=== PATIENT | male | born 1995 | race Asian ===

== ENCOUNTER 2017-08-07 07:11 | Inpatient (IN) | payer OTHER ==
--- NOTE | 2017-08-07 07:19 | PDOC ---
History of Present Illness - General Chief Complaint: Bone Injury Stated Complaint: FINGER INJURY Time Seen by Provider: 08/07/17 07:18 - History of Present Illness Initial Comments: 08/07/17 08:08 The patient is a 21 year old right hand dominant male who presents for evaluation of an injury to his right hand. The patient reports that he caught his hand in a front desk host 15 minutes prior to presentation to the ED and sustained injuries to his 2nd, 3rd, 4th and 5th digits. He reports pain to his right hand but denies any numbness, weakness or decreased ROM. He reports the worst pain to his 4th digit where his nail has avulsed off. He otherwise denies any other injuries. Past History - Past Medical History Allergies/Adverse Reactions: Allergies Allergy/AdvReac Type Severity Reaction Status Date / Time No Known Allergies Allergy Verified 08/07/17 07:23 Home Medications: Ambulatory Orders NK [No Known Home Medication] 08/07/17 Review of Systems - Review of Systems Comments:: 08/07/17 08:12 Constitutional: No fevers, chills, fatigue, malaise HEENT: No Rhinorrhea, nasal congestion, visual changes Cardiovascular: No chest pain, syncope, palpitations, lightheadedness Respiratory: No Cough, SOB, Hemoptysis, Gastrointestinal: No Abdominal pain, Nausea, Vomiting, Constipation, Diarrhea, Melena Genitourinary: No Dysuria, Frequency, Urgency, Hesitancy, Hematuria, Flank pain Musculoskeletal: Pain to the right 4th and 5h digits of the hand. No Myalgia, arthralgia Skin: No rashes, itching, bruising, pallor Neurologic: No Headache, Dizziness, Numbness, Weakness, or Tingling Psychiatric: No Hallucinations. No SI or HI *Physical Exam - Physical Exam Comments: 08/07/17 08:15 General Appearance: Nourished. No Apparent Distress HEENT: No Pharyngeal Erythema, Tonsillar Exudate, Tonsillar Erythema Neck: No Cervical Lymphadenopathy Respiratory/Chest: Lungs Clear, Normal Breath Sounds. No Crackles, Rales, Rhonchi, Wheezing Cardiovascular: Regular Rhythm, Regular Rate. No Murmur, Gallops, Rubs Gastrointestinal/Abdominal: Normal Bowel Sounds, Soft. No Guarding, Rebound, Tenderness Musculoskeletal: No CVA Tenderness Extremity: The right 4th digit has the nail avulsed off with a notable hematoma. Laceration to the distal right 5th digit. Small hematoma under the nail of the right 3rd digit. Sensation to light touch and temperature intact in the distal extremities bilaterally. Normal ROM. Normal Capillary Refill Integumentary: Normal Color, Dry, Warm Neurologic: Fully Oriented, Alert, Normal Mood/Affect, Normal Response, ED Treatment Course - LABORATORY CBC & Chemistry Diagram: 08/07/17 09:22 08/07/17 09:22 Medical Decision Making - Medical Decision Making 08/07/17 09:32 The patient is a 21 year old right hand dominant male who presents for evaluation of an injury to his right hand. Differential includes but is not limited to: Nail bed laceration, Fracture, Laceration. Given the patient's physical exam, we obtained plain films to evaluate for fractures within the hand. They demonstrated a comminuted crush fracture to the distal 4th right digit as read by our radiologist. We discussed the case with Dr. Wasserman with Plastic Surgery who will take the patient to the OR for repair and wash out and would like the patient admitted. We discussed the case with Dr. Monsalve who accepted the patient for admission and requests ID consultation with Dr. Bang for antibiotic coverage. We discussed the results and the plan with the patient who voiced understanding and is agreeable with the plan. *DC/Admit/Observation/Transfer Diagnosis at time of Disposition: Injury of right hand Qualifiers: Encounter type: initial encounter Qualified Code(s): S69.91XA - Unspecified injury of right wrist, hand and finger(s), initial encounter - Discharge Dispostion Condition at time of disposition: Stable Admit: Yes - Referrals - Patient Instructions - Post Discharge Activity
[2017-08-07] MEDS ORDERED: DIPHTH,PERTUSS(ACELL),TET 0.5 ML DISP.SYRIN IM ONE (07:24)
[2017-08-07 07:35] VITALS: BMI 32.8
[2017-08-07] MEDS ORDERED: morphine CARPU-JECT 2 MG/1 ML DISP.SYRIN IVPUSH ONE (07:46)
--- NOTE | 2017-08-07 07:56 | PDOC ---
Attending Attestation - HPI HPI: 08/07/17 08:59 The patient is a 21 year old R hand dominant male with no significant PMH who presents to the emergency department with a right hand injury after his hand was caught in a profiler. The patient reports injuries to the 2nd, 3rd, 4th, and 5th right fingers. The patient denies active bleeding. Does not remember last tetanus. Has not taken anything for pain. Allergies: NKA - Physicial Exam PE: 08/07/17 08:59 GENERAL: Awake, alert, and fully oriented, in no acute distress HEAD: No signs of trauma EYES: PERRLA, EOMI, sclera anicteric, conjunctiva clear ENT: Auricles normal inspection, hearing grossly normal, nares patent, oropharynx clear without exudates. Moist mucosa NECK: Normal ROM, supple, no lymphadenopathy, JVD, or masses LUNGS: Breath sounds equal, clear to auscultation bilaterally. No wheezes, and no crackles HEART: Regular rate and rhythm, normal S1 and S2, no murmurs, rubs or gallops ABDOMEN: Soft, nontender, normoactive bowel sounds. No guarding, no rebound. No masses EXTREMITIES: R hand: 2+ radial pulse, normal sensation, normal ROM, normal strength with flextion, extension, abduction, adduction of fingers. Right 2nd finger: proximal nail fold with 1mm x 3mm hematoma Right 3rd finger: 20% subungal hematoma, no ttp Right 4th finger: nail completely off with visible laceration to nailbed. Hemostatic, +ttp Right 5th finger: distal tip 2mm laceration, hemostatic Otherwise: normal range of motion, no edema. No clubbing or cyanosis. No cords , erythema, or tenderness BACK: No midline spinal tenderness in cervical/thoracic/lumbar region NEUROLOGICAL: Normal speech, cranial nerves intact, negative pronator drift, 5/ 5 strength in all 4 extremities, normal sensation to light touch in all 4 extremities, normal cerebellar exam, normal gait, normal reflexes and tone SKIN: Warm, Dry, normal turgor, no rashes or lesions noted. <Hossein Valentin - Last Filed: 08/07/17 08:59> - Resident Resident Name: Deric Prabhakar - ED Attending Attestation I have performed the following: I have examined & evaluated the patient, The case was reviewed & discussed with the resident, I agree w/resident's findings & plan, Exceptions are as noted - Medical Decision Making 08/07/17 09:02 21-year-old male presents to emergency department with right hand injury after it was stuck in a snowblower. Vitals unremarkable. Exam with concern for open fracture of the fourth digit. X-ray reveals crush injury to the right fourth finger. Dr. Wasserman was consulted and will take the patient to the operating room. We'll obtain blood work and give Ancef for prophylaxis. All results have been explained to the patient and he is amenable to the plan. <Lissy Alonso - Last Filed: 08/07/17 10:06> Heart Score/ECG Review #1 08/07/17 10:06 Twelve-lead EKG was performed and reviewed by me. Sinus bradycardia, rate 56. Normal axis. Sinus arrhythmia, likely due to respiratory variation. No ST elevations. <Lissy Alonso - Last Filed: 08/07/17 10:06>
[2017-08-07] MEDS ORDERED: MORPHINE SULFATE 10 MG/1 ML *VIAL ONE (08:01)
[2017-08-07] MEDS ORDERED: CEFAZOLIN 1 GM in DEXTROSE 5%-WATER - 50 ML IVPB ONE (09:16)
[2017-08-07] MEDS ORDERED: CEFAZOLIN 1 GM/D5W 1 GM/50 ML BAG ONE (09:31)
[2017-08-07 09:44] LABS: BASO % 0.4 % (0-2.0); EOS % 0.9 % (0-4.5); HEMATOCRIT 43.1 % (35.4-49); HEMOGLOBIN 14.3 GM/dL (11.7-16.9); LYMPH % 10.3 % (8-40); MCH 28.6 pg (25.7-33.7); MCHC 33.2 g/dl (32.0-35.9); MEAN CELL VOLUME 86.3 fl (80-96); MEAN PLT VOLUME 8.1 fl (7.5-11.1); MONO % 6.4 % (3.8-10.2); PLATELET COUNT 304 K/MM3 (134-434); RDW 13.5 % (11.9-15.9)
[2017-08-07 09:56] LABS: INR 1.06 (0.82-1.09)
[2017-08-07 10:08] LABS: ALBUMIN 4.2 g/dl (3.4-5.0); ALK PHOS 106 U/L (45-117); ANION GAP 6 (8-16); BILIRUBIN,TOTAL 0.3 mg/dL (0.2-1.0); BLOOD UREA NITROGEN 12 mg/dL (7-18); CHLORIDE 106 mmol/L (98-107); CO2 26 mmol/L (21-32); CREATININE 0.9 mg/dL (0.7-1.3); GLUCOSE,RANDOM 108 mg/dL (74-106); POTASSIUM 4.7 mmol/L (3.5-5.1); SGOT/AST 14 U/L (15-37); SGPT/ALT 16 U/L (12-78); SODIUM 138 mmol/L (136-145); TOT PROT 7.8 g/dl (6.4-8.2)
[2017-08-07] MEDS ORDERED: SODIUM CHLORIDE 1,000 ML IV STA (10:14)
--- NOTE | 2017-08-07 12:23 | EKG ---
Test Reason : Blood Pressure : / mmHG Vent. Rate : 056 BPM Atrial Rate : 056 BPM P-R Int : 140 ms QRS Dur : 092 ms QT Int : 390 ms P-R-T Axes : 031 036 024 degrees QTc Int : 376 ms SINUS BRADYCARDIA WITH SINUS ARRHYTHMIA OTHERWISE NORMAL ECG NO PREVIOUS ECGS AVAILABLE Confirmed by LUIS FELIPE BOYCE MD ([id number]) on 08/07/2017 12:22:45 PM Referred By: Confirmed By:LUIS FELIPE BOYCE MD
--- NOTE | 2017-08-07 12:23 | CONSULT ---
Consult Consult Specialty:: hand surgery Referred by:: farrukh machuca MD Reason for Consultation:: right hand injury - History of Present Illness Chief Complaint: right hand injury History of Present Illness: 21 yo RHD male with no significant PMH who presents to the emergency department with a right hand injury after his hand was caught in a framing mechanic this morning. The patient reports injuries to the 2nd, 3rd, 4th, and 5th right fingers. The patient denies active bleeding. Does not remember last tetanus. Has not taken anything for pain. we were asked to assess and treat - History Source History Provided By: Patient, Medical Record Limitations to Obtaining History: No Limitations - Alcohol/Substance Use Hx Alcohol Use: No - Smoking History Smoking history: Never smoked Have you smoked in the past 12 months: No Home Medications - Allergies Allergies/Adverse Reactions: Allergies Allergy/AdvReac Type Severity Reaction Status Date / Time No Known Allergies Allergy Verified 08/07/17 07:23 - Home Medications Home Medications: Ambulatory Orders NK [No Known Home Medication] 08/07/17 Review of Systems - Review of Systems Constitutional: denies: Chills, Fever Eyes: denies: Blind Spots, Recent Change in Vision HENT: denies: Difficult Swallowing, Throat Pain Neck: denies: Pain on Movement, Tenderness Cardiovascular: denies: Chest Pain, Palpitations Respiratory: denies: Cough, SOB Gastrointestinal: denies: Constipation, Diarrhea Genitourinary: denies: Discharge, Dysuria Breasts: reports: No Symptoms Reported. denies: Pain Musculoskeletal: denies: Muscle Pain, Muscle Weakness Integumentary: denies: Lesions, Rash Neurological: denies: Seizure, Syncope, Tremors Endocrine: denies: Unexplained Weight Gain, Unexplained Weight Loss Hematology/Lymphatic: denies: Easily Bruised, Excessive Bleeding Psychiatric: denies: Anxiety, Depression Physical Exam Vital Signs: Vital Signs Temperature 98.1 F 08/07/17 10:15 Pulse Rate 68 08/07/17 10:15 Respiratory Rate 18 08/07/17 10:15 Blood Pressure 133/75 08/07/17 10:15 O2 Sat by Pulse Oximetry (%) 98 08/07/17 10:15 Vital Signs Period Temp Pulse Resp BP Sys/Mohr Pulse Ox Last 24 Hr 97.0 F-98.3 F 55-84 14-20 122-137/58-85 98-100 Constitutional: Yes: No Distress, Calm, Obese Eyes: Yes: Conjunctiva Clear, EOM Intact HENT: Yes: Atraumatic, Normocephalic Neck: Yes: Supple, Trachea Midline Cardiovascular: Yes: Regular Rate and Rhythm, S1, S2. No: Murmur Respiratory: Yes: Regular, CTA Bilaterally Gastrointestinal: Yes: Normal Bowel Sounds, Soft. No: Tenderness ...Rectal Exam: Yes: Deferred Renal/: No: CVA Tenderness - Left, CVA Tenderness - Right Musculoskeletal: No: Muscle Pain, Muscle Weakness Extremities: No: Cool, Cyanosis Integumentary: No: Jaundice, Rash Wound/Incision: Yes: Open to air, Bleeding (venous oozing, no pulsatile bleeding ), Unapproximated (right finger nail plate avulsion, with 1.5cm laceation of nail bed and comminuted tuft fracture. right small finger ulnar sided laceration 1cm to pulp,) Neurological: Yes: Alert, Oriented Psychiatric: Yes: Alert, Oriented Labs: CBC, BMP 08/07/17 09:22 08/07/17 09:22 INR, PTT INR 1.06 (0.82-1.09) 08/07/17 09:22 Imaging - Results X-ray: Report Reviewed (right ring finger comminuted tuft fracture), Image Reviewed Problem List - Problems (1) Open fracture of tuft of distal phalanx of finger Assessment/Plan: 21yo RHD male with right hand framing mechanic injury A. Right ring finger open tuft fracture with nail plate avulsion and nail bed laceration B. Right small finger ulnar laceration of pulp C. Right middle finger small subungal hematoma D. Right index finger small eponychial hematoma NPO and IVF hydration IV antibiotics adequate analgesia OR for right hand 4th and 5th digit wound exploration, debridement and closure - Discussed with patient risks, benefits and alternatives of proposed procedure , including but not limited to bleeding, infection, injury to adjacent structures, loss of function, need for further procedures, ; alternatives include antibiotics, delayed or no surgery - risks of this include failure of nonoperative therapy, perforation, sepsis, recurrence, . Patient desires to proceed with operation - will take to OR for above. Informed consent signed for same. Code(s): S62.639B - DISP FX OF DISTAL PHALANX OF UNSP FINGER, INIT FOR OPN FX (2) Nailbed laceration, finger Code(s): S61.319A - LACERATION W/O FB OF UNSP FINGER W DAMAGE TO NAIL, INIT (3) Traumatic avulsion of nail plate of finger Code(s): S61.309A - UNSP OPEN WOUND OF UNSP FINGER W DAMAGE TO NAIL, INIT ENCNTR (4) Injury of right hand Code(s): S69.91XA - UNSP INJURY OF RIGHT WRIST, HAND AND FINGER(S), INIT ENCNTR Qualifiers: Encounter type: initial encounter Qualified Code(s): S69.91XA - Unspecified injury of right wrist, hand and finger(s), initial encounter
--- NOTE | 2017-08-07 12:48 | HP ---
Admitting History and Physical - Smoking History Smoking history: Never smoked Have you smoked in the past 12 months: No - Alcohol/Substance Use Hx Alcohol Use: No Home Medications - Allergies Allergies/Adverse Reactions: Allergies Allergy/AdvReac Type Severity Reaction Status Date / Time No Known Allergies Allergy Verified 08/07/17 07:23 - Home Medications Home Medications: Ambulatory Orders NK [No Known Home Medication] 08/07/17 Physical Examination Vital Signs: Vital Signs Temperature 98.3 F 08/07/17 12:10 Pulse Rate 67 08/07/17 12:10 Respiratory Rate 20 08/07/17 12:10 Blood Pressure 136/85 08/07/17 12:10 O2 Sat by Pulse Oximetry (%) 98 08/07/17 12:10 Labs: CBC, BMP 08/07/17 09:22 08/07/17 09:22
[2017-08-07] MEDS ORDERED: DEXTROSE 5%-0.45% SALINE 1,000 ML IV SCH (13:00)
--- NOTE | 2017-08-07 13:17 | CON.ID ---
Consult Consult Specialty:: infectious diseases Referred by:: dr Monsalve Reason for Consultation:: cellulitis of the rt hand with finger injury - History of Present Illness Chief Complaint: injury to the rt hand History of Present Illness: 21 yo RHD male with no significant PMH who presents admitted with a right hand injury after his hand was caught in a computer project manager . The patient reports injuries to the 2nd, 3rd, 4th, and 5th right fingers. The patient denies active bleeding. . patient was evaluated by hand surgeon and taken to the operating room patient underwent surgery now patient is post op in recovery room feeling much better with cast on his rt hand had a nerver block as anesthesia - History Source History Provided By: Patient Limitations to Obtaining History: No Limitations - Alcohol/Substance Use Hx Alcohol Use: No - Smoking History Smoking history: Never smoked Have you smoked in the past 12 months: No Home Medications - Allergies Allergies/Adverse Reactions: Allergies Allergy/AdvReac Type Severity Reaction Status Date / Time No Known Allergies Allergy Verified 08/07/17 07:23 - Home Medications Home Medications: Ambulatory Orders NK [No Known Home Medication] 08/07/17 Review of Systems - Review of Systems Constitutional: denies: Chills, Fever Eyes: reports: No Symptoms. denies: Blind Spots, Blurred Vision HENT: denies: Difficult Swallowing Neck: reports: No Symptoms Cardiovascular: reports: No Symptoms. denies: Chest Pain Respiratory: reports: No Symptoms Gastrointestinal: reports: No Symptoms Genitourinary: reports: No Symptoms Musculoskeletal: reports: Extremity Pain Integumentary: reports: Wound Neurological: reports: No Symptoms. denies: Change in LOC, Change in Speech Endocrine: reports: No Symptoms Hematology/Lymphatic: reports: No Symptoms Psychiatric: reports: No Symptoms Physical Exam Vital Signs: Vital Signs Temperature 98.3 F 08/07/17 12:10 Pulse Rate 67 08/07/17 12:10 Respiratory Rate 20 08/07/17 12:10 Blood Pressure 136/85 08/07/17 12:10 O2 Sat by Pulse Oximetry (%) 98 08/07/17 12:10 Constitutional: Yes: Well Nourished, No Distress, Calm Eyes: Yes: Conjunctiva Clear Neck: Yes: Supple, Trachea Midline Cardiovascular: Yes: Regular Rate and Rhythm Respiratory: Yes: Regular, CTA Bilaterally Gastrointestinal: Yes: Normal Bowel Sounds, Soft Musculoskeletal: Yes: Other Extremities: Yes: Other (cast present on the hand) Integumentary: Yes: Other Wound/Incision: Yes: Dressing Dry and Intact Neurological: Yes: Alert, Oriented Psychiatric: Yes: Alert, Oriented Labs: CBC, BMP 08/07/17 09:22 08/07/17 09:22 Imaging - Results X-ray: Report Reviewed, Image Reviewed Assessment/Plan Problem List - Problems (1) Open fracture of tuft of distal phalanx of finger Code(s): S62.639B - DISP FX OF DISTAL PHALANX OF UNSP FINGER, INIT FOR OPN FX (2) Nailbed laceration, finger Code(s): S61.319A - LACERATION W/O FB OF UNSP FINGER W DAMAGE TO NAIL, INIT (3) Traumatic avulsion of nail plate of finger Code(s): S61.309A - UNSP OPEN WOUND OF UNSP FINGER W DAMAGE TO NAIL, INIT ENCNTR (4) Injury of right hand Code(s): S69.91XA - UNSP INJURY OF RIGHT WRIST, HAND AND FINGER(S), INIT ENCNTR Qualifiers: Encounter type: initial encounter Qualified Code(s): S69.91XA - Unspecified injury of right wrist, hand and finger(s), initial encounter leukocytosis plan will start patient on zosyn post op monitor wbc rest as per surgery
[2017-08-07] MEDS ORDERED: MIDAZOLAM HCL 2 MG/2 ML SINGLE DOSE VIAL ONE ×2 (13:44)
[2017-08-07] MEDS ORDERED: ONDANSETRON 4 MG/2 ML VIAL IVPUSH PRN (14:05)
[2017-08-07] MEDS ORDERED: LACTATED RINGERS SOLUTION 1,000 ML IV SCH (14:15)
[2017-08-07] MEDS ORDERED: ceFAZolin SODIUM 1 GM VIAL ONE (14:18)
[2017-08-07] MEDS ORDERED: ceFAZolin SODIUM 1 GM VIAL IVPB ONE (14:20)
[2017-08-07] MEDS ORDERED: MEPERIDINE HCL CARPU-JECT 25 MG/1 ML DISP.SYRIN ONE (15:22)
--- NOTE | 2017-08-07 15:52 | OP ---
Operative Note - Note: Operative Date: 08/07/17 Pre-Operative Diagnosis: right hand admeasurer injury Operation: Right 4th and 5th Digit wound exploration and debridement. Ring finger nailbed laceration repair 1.5cm and eponychial fold splinting, TT=24mins Findings: comminuted tuft fracture right ring finger, nail-plate avulsion and 1.5cm nail- bed laceration, right small finger laceration 1cm Post-Operative Diagnosis: Same as Pre-op Surgeon: Marcello Wasserman Anesthesiologist/CHILD CARE GIVER: Obey Russell Anesthesia: General, Local (scalene block right ) Estimated Blood Loss (mls): 2 Instrument used (Debridements only): scissor Drains & Tubes with Location: none Fluid Volume Replaced (mls): 400 Operative Report Dictated: Yes
[2017-08-07] MEDS ORDERED: ACETAMINOPHEN 325 MG TABLET (FP) PO PRN ×3 (15:55→17:44)
[2017-08-07] MEDS ORDERED: morphine SULFATE 4 MG/ML VIAL IVPUSH PRN ×2 (15:55→16:45)
[2017-08-07] MEDS ORDERED: IBUPROFEN 600 MG TABLET (FP) PO PRN (15:55)
[2017-08-07] MEDS ORDERED: ONDANSETRON 4 MG/2 ML VIAL IVPB PRN (15:58)
[2017-08-07] MEDS: DEXTROSE 5%-0.45% SALINE 1,000 ML IV SCH (17:24)
[2017-08-07] MEDS: PIPERACILLIN/TAZOB 3.375 GM 3.375 GM in DEXTROSE 5%-WATER - 50 ML IVPB SCH (17:25)
[2017-08-07] MEDS ORDERED: PIPERACILLIN/TAZOB 3.375 GM 3.375 GM in DEXTROSE 5%-WATER - 50 ML IVPB SCH (18:00)
[2017-08-07] MEDS: PANTOPRAZOLE SODIUM 40 MG VIAL IVPUSH SCH (18:11)
[2017-08-08] MEDS: PIPERACILLIN/TAZOB 3.375 GM 3.375 GM in DEXTROSE 5%-WATER - 50 ML IVPB SCH ×3 (02:35→18:33)
[2017-08-08] MEDS: DEXTROSE 5%-0.45% SALINE 1,000 ML IV SCH (02:38)
[2017-08-08 07:30] LABS: BASO % 0.3 % (0-2.0); HEMATOCRIT 40.7 % (35.4-49); HEMOGLOBIN 13.7 GM/dL (11.7-16.9); LYMPH % 6.8 % (8-40); MCH 28.8 pg (25.7-33.7); MCHC 33.8 g/dl (32.0-35.9); MEAN CELL VOLUME 85.4 fl (80-96); MEAN PLT VOLUME 8.6 fl (7.5-11.1); NEUT % 88.9 % (42.8-82.8); PLATELET COUNT 300 K/MM3 (134-434); RBC 4.76 M/mm3 (4.00-5.60); RDW 13.2 % (11.9-15.9); WHITE BLOOD COUNT 16.4 K/mm3 (4.0-10.0)
[2017-08-08] MEDS: PANTOPRAZOLE SODIUM 40 MG VIAL IVPUSH SCH (10:08)
--- NOTE | 2017-08-08 11:20 | PN ---
Progress Note, Physician Chief Complaint: right hand pharmacists injury History of Present Illness: 21 yo RHD male with no significant PMH who presents to the emergency department with a right hand injury after his hand was caught in a pharmacists this morning. The patient reports injuries to the 2nd, 3rd, 4th, and 5th right fingers. stable overnight, pain adequately controlled. - Current Medication List Current Medications: Active Medications Acetaminophen (Tylenol -) 650 mg PO Q6H PRN PRN Reason: PAIN LEVEL 4 - 6 Dextrose/Sodium Chloride (D5-1/2ns -) 1,000 mls @ 75 mls/hr IV ASDIR [facility] Last Admin: 08/08/17 02:38 Dose: 75 mls/hr Piperacillin Sod/Tazobactam (Sod 3.375 gm/ Dextrose) 50 mls @ 100 mls/hr IVPB Q8H-IV YAMILKA PRN Reason: Protocol Last Admin: 08/08/17 10:17 Dose: 100 mls/hr Ibuprofen (Motrin -) 600 mg PO Q6H PRN PRN Reason: PAIN LEVEL 4 - 6 Morphine Sulfate (Morphine Sulfate) 2 mg IVPUSH Q6H PRN PRN Reason: PAIN LEVEL 6-10 Ondansetron HCl (Zofran Injection) 4 mg IVPB Q6H PRN PRN Reason: NAUSEA Pantoprazole Sodium (Protonix Iv) 40 mg IVPUSH DAILY [facility] Last Admin: 08/08/17 10:08 Dose: 40 mg - Objective Vital Signs: Vital Signs Temperature 98.1 F 08/08/17 09:14 Pulse Rate 86 08/08/17 09:14 Respiratory Rate 20 08/08/17 09:14 Blood Pressure 137/79 08/08/17 09:14 O2 Sat by Pulse Oximetry (%) 97 08/07/17 20:46 Vital Signs Period Temp Pulse Resp BP Sys/Mohr Pulse Ox Last 24 Hr 97.7 F-98.3 F 61-86 14-20 109-137/53-85 96-99 Constitutional: Yes: No Distress, Calm Eyes: Yes: Conjunctiva Clear, EOM Intact, Ptosis HENT: Yes: Atraumatic Neck: Yes: Supple, Trachea Midline Cardiovascular: Yes: Regular Rate and Rhythm Respiratory: Yes: Regular, CTA Bilaterally Extremities: No: Cool, Cyanosis Wound/Incision: Yes: Clean/Dry, Dressing Dry and Intact Neurological: Yes: Alert, Oriented Psychiatric: Yes: Alert, Oriented Labs: CBC, BMP 08/08/17 06:40 08/07/17 09:22 INR, PTT INR 1.06 (0.82-1.09) 08/07/17 09:22 Problem List - Problems (1) Open fracture of tuft of distal phalanx of finger Assessment/Plan: 21yo RHD male with right hand pharmacists injury A. Right ring finger open tuft fracture with nail plate avulsion and nail bed laceration B. Right small finger ulnar laceration of pulp C. Right middle finger small subungal hematoma D. Right index finger small eponychial hematoma POD#1 s/p repair, Repeat WBC 16.4, would reccomend remaining an additional day to receive IV antibiotics F/u in surgery clinic in 1 week for Dressing change Antibiotic regimen per ID Right Arm elevation encourage ambulation and Incentive spirometry Adequate analgesia Code(s): S62.639B - DISP FX OF DISTAL PHALANX OF UNSP FINGER, INIT FOR OPN FX (2) Nailbed laceration, finger Code(s): S61.319A - LACERATION W/O FB OF UNSP FINGER W DAMAGE TO NAIL, INIT (3) Traumatic avulsion of nail plate of finger Code(s): S61.309A - UNSP OPEN WOUND OF UNSP FINGER W DAMAGE TO NAIL, INIT ENCNTR (4) Injury of right hand Code(s): S69.91XA - UNSP INJURY OF RIGHT WRIST, HAND AND FINGER(S), INIT ENCNTR Qualifiers: Encounter type: initial encounter Qualified Code(s): S69.91XA - Unspecified injury of right wrist, hand and finger(s), initial encounter
--- NOTE | 2017-08-08 11:51 | PN ---
Progress Note (short form) - Note Progress Note: ANESTHESIOLOGY 21M s/p right hand washout under supraclavicular nerve block and sedation, POD # 1. No complaints. Denies pain, N/V. Reports decreased sensatoin and weakness of RUE. Vital Signs Temperature 98.1 F 08/08/17 09:14 Pulse Rate 86 08/08/17 09:14 Respiratory Rate 20 08/08/17 09:14 Blood Pressure 137/79 08/08/17 09:14 O2 Sat by Pulse Oximetry (%) 97 08/07/17 20:46 Active Medications Acetaminophen (Tylenol -) 650 mg PO Q6H PRN PRN Reason: PAIN LEVEL 4 - 6 Dextrose/Sodium Chloride (D5-1/2ns -) 1,000 mls @ 75 mls/hr IV ASDIR [facility] Last Admin: 08/08/17 02:38 Dose: 75 mls/hr Piperacillin Sod/Tazobactam (Sod 3.375 gm/ Dextrose) 50 mls @ 100 mls/hr IVPB Q8H-IV YAMILKA PRN Reason: Protocol Last Admin: 08/08/17 10:17 Dose: 100 mls/hr Ibuprofen (Motrin -) 600 mg PO Q6H PRN PRN Reason: PAIN LEVEL 4 - 6 Morphine Sulfate (Morphine Sulfate) 2 mg IVPUSH Q6H PRN PRN Reason: PAIN LEVEL 6-10 Ondansetron HCl (Zofran Injection) 4 mg IVPB Q6H PRN PRN Reason: NAUSEA Pantoprazole Sodium (Protonix Iv) 40 mg IVPUSH DAILY [facility] Last Admin: 08/08/17 10:08 Dose: 40 mg Gen: Awake alert. Ext: Decreased sensation and motor weakness of RUE up to shoulder. No apparent anesthesia complications. Sensorimotor deficit after nerve block persists. Expect nerve block to wear off this afternoon. Start PO analgesics when sensation starts to return. Continue management as per primary team.
--- NOTE | 2017-08-08 12:03 | PN ---
Progress Note, Physician History of Present Illness: patient has no complaints no issues wbc has increased no fevers - Current Medication List Current Medications: Active Medications Acetaminophen (Tylenol -) 650 mg PO Q6H PRN PRN Reason: PAIN LEVEL 4 - 6 Piperacillin Sod/Tazobactam (Sod 3.375 gm/ Dextrose) 50 mls @ 100 mls/hr IVPB Q8H-IV YAMILKA PRN Reason: Protocol Last Admin: 08/08/17 10:17 Dose: 100 mls/hr Vancomycin HCl 1,250 mg/ (Dextrose) 250 mls @ 166.667 mls/hr IVPB Q24H YAMILKA PRN Reason: Protocol Ibuprofen (Motrin -) 600 mg PO Q6H PRN PRN Reason: PAIN LEVEL 4 - 6 Morphine Sulfate (Morphine Sulfate) 2 mg IVPUSH Q6H PRN PRN Reason: PAIN LEVEL 6-10 Ondansetron HCl (Zofran Injection) 4 mg IVPB Q6H PRN PRN Reason: NAUSEA Pantoprazole Sodium (Protonix Iv) 40 mg IVPUSH DAILY [facility] Last Admin: 08/08/17 10:08 Dose: 40 mg - Objective Vital Signs: Vital Signs Temperature 98.1 F 08/08/17 09:14 Pulse Rate 86 08/08/17 09:14 Respiratory Rate 20 08/08/17 09:14 Blood Pressure 137/79 08/08/17 09:14 O2 Sat by Pulse Oximetry (%) 97 08/08/17 09:00 Constitutional: Yes: No Distress, Calm Cardiovascular: Yes: Regular Rate and Rhythm Respiratory: Yes: Regular, CTA Bilaterally Gastrointestinal: Yes: Normal Bowel Sounds, Soft Musculoskeletal: Yes: WNL Extremities: Yes: Other Wound/Incision: Yes: Dressing Dry and Intact Neurological: Yes: Alert, Oriented Psychiatric: Yes: Alert, Oriented Labs: CBC, BMP 08/08/17 06:40 08/07/17 09:22 INR, PTT INR 1.06 (0.82-1.09) 08/07/17 09:22 Assessment/Plan Problem List - Problems (1) Open fracture of tuft of distal phalanx of finger Code(s): S62.639B - DISP FX OF DISTAL PHALANX OF UNSP FINGER, INIT FOR OPN FX (2) Nailbed laceration, finger Code(s): S61.319A - LACERATION W/O FB OF UNSP FINGER W DAMAGE TO NAIL, INIT (3) Traumatic avulsion of nail plate of finger Code(s): S61.309A - UNSP OPEN WOUND OF UNSP FINGER W DAMAGE TO NAIL, INIT ENCNTR (4) Injury of right hand Code(s): S69.91XA - UNSP INJURY OF RIGHT WRIST, HAND AND FINGER(S), INIT ENCNTR Qualifiers: Encounter type: initial encounter Qualified Code(s): S69.91XA - Unspecified injury of right wrist, hand and finger(s), initial encounter leukocytosis patients wbc has increased quite a lot plan will add vanco to zosyn continue to monitor wbc i am worried about the increase in wbc i have discussed in detail with the patient and the family about the wbc and the importance of adding abx and following it patient and the family understands the same
[2017-08-08] MEDS ORDERED: VANCOMYCIN 1,250 MG in DEXTROSE 5%-WATER - 250 ML IVPB SCH (12:30)
[2017-08-08] MEDS: IBUPROFEN 600 MG TABLET (FP) PO PRN ×2 (13:54→20:44)
--- NOTE | 2017-08-08 18:13 | PN ---
Progress Note, Physician - Current Medication List Current Medications: Active Medications Acetaminophen (Tylenol -) 650 mg PO Q6H PRN PRN Reason: PAIN LEVEL 4 - 6 Piperacillin Sod/Tazobactam (Sod 3.375 gm/ Dextrose) 50 mls @ 100 mls/hr IVPB Q8H-IV YAMILKA PRN Reason: Protocol Last Admin: 08/08/17 10:17 Dose: 100 mls/hr Vancomycin HCl 1,250 mg/ (Dextrose) 250 mls @ 166.667 mls/hr IVPB Q24H Y[facility]ILKA PRN Reason: Protocol Last Admin: 08/08/17 12:46 Dose: 166.667 mls/hr Ibuprofen (Motrin -) 600 mg PO Q6H PRN PRN Reason: PAIN LEVEL 4 - 6 Last Admin: 08/08/17 13:54 Dose: 600 mg Morphine Sulfate (Morphine Sulfate) 2 mg IVPUSH Q6H PRN PRN Reason: PAIN LEVEL 6-10 Ondansetron HCl (Zofran Injection) 4 mg IVPB Q6H PRN PRN Reason: NAUSEA Pantoprazole Sodium (Protonix Iv) 40 mg IVPUSH DAILY [facility] Last Admin: 08/08/17 10:08 Dose: 40 mg - Objective Vital Signs: Vital Signs Temperature 98.6 F 08/08/17 14:43 Pulse Rate 89 08/08/17 14:43 Respiratory Rate 20 08/08/17 14:43 Blood Pressure 115/43 08/08/17 14:43 O2 Sat by Pulse Oximetry (%) 97 08/08/17 09:00 Constitutional: Yes: Well Nourished, No Distress Eyes: Yes: Conjunctiva Clear, EOM Intact HENT: Yes: Atraumatic, Normocephalic Neck: Yes: Supple, Trachea Midline Cardiovascular: Yes: Regular Rate and Rhythm, S1, S2 Respiratory: Yes: Regular, CTA Bilaterally Gastrointestinal: Yes: Normal Bowel Sounds, Soft Edema: No Peripheral Pulses WNL: Yes Neurological: Yes: Alert, Oriented, Cran Nerves II-XII Intact Labs: CBC, BMP 08/08/17 06:40 08/07/17 09:22 INR, PTT INR 1.06 (0.82-1.09) 08/07/17 09:22
[2017-08-08] MEDS ORDERED: PT OWN MED DRAWER 7, Y5N ONE (18:30)
[2017-08-09] MEDS ORDERED: PT OWN MED DRAWER 7, Y5N ONE (01:18)
[2017-08-09] MEDS: PIPERACILLIN/TAZOB 3.375 GM 3.375 GM in DEXTROSE 5%-WATER - 50 ML IVPB SCH ×2 (01:28→09:31)
--- NOTE | 2017-08-09 07:33 | PN ---
Progress Note, Physician Chief Complaint: right hand web operations administrator injury History of Present Illness: 21 yo RHD male with no significant PMH who presents to the emergency department with a right hand injury after his hand was caught in a web operations administrator this morning. The patient reports injuries to the 2nd, 3rd, 4th, and 5th right fingers. stable overnight, pain adequately controlled. - Current Medication List Current Medications: Active Medications Acetaminophen (Tylenol -) 650 mg PO Q6H PRN PRN Reason: PAIN LEVEL 4 - 6 Piperacillin Sod/Tazobactam (Sod 3.375 gm/ Dextrose) 50 mls @ 100 mls/hr IVPB Q8H-IV YAMILKA PRN Reason: Protocol Last Admin: 08/09/17 01:28 Dose: 100 mls/hr Vancomycin HCl 1,250 mg/ (Dextrose) 250 mls @ 166.667 mls/hr IVPB Q24H YAMILKA PRN Reason: Protocol Last Admin: 08/08/17 12:46 Dose: 166.667 mls/hr Ibuprofen (Motrin -) 600 mg PO Q6H PRN PRN Reason: PAIN LEVEL 4 - 6 Last Admin: 08/08/17 20:44 Dose: 600 mg Morphine Sulfate (Morphine Sulfate) 2 mg IVPUSH Q6H PRN PRN Reason: PAIN LEVEL 6-10 Ondansetron HCl (Zofran Injection) 4 mg IVPB Q6H PRN PRN Reason: NAUSEA Pantoprazole Sodium (Protonix Iv) 40 mg IVPUSH DAILY [facility] Last Admin: 08/08/17 10:08 Dose: 40 mg - Objective Vital Signs: Vital Signs Temperature 98.2 F 08/08/17 18:34 Pulse Rate 83 08/08/17 18:34 Respiratory Rate 18 08/08/17 18:34 Blood Pressure 106/71 08/08/17 18:34 O2 Sat by Pulse Oximetry (%) 98 08/08/17 22:00 Constitutional: Yes: Well Nourished, No Distress, Calm Eyes: Yes: Conjunctiva Clear, EOM Intact HENT: Yes: Atraumatic, Normocephalic Neck: Yes: Supple, Trachea Midline Cardiovascular: Yes: Regular Rate and Rhythm, S1, S2. No: Murmur Respiratory: Yes: Regular, CTA Bilaterally Gastrointestinal: Yes: Normal Bowel Sounds, Soft ...Rectal Exam: Yes: Deferred Genitourinary: No: CVA Tenderness - Left, CVA Tenderness - Right Extremities: No: Cool, Cyanosis Edema: No Wound/Incision: Yes: Clean/Dry, Dressing Dry and Intact Neurological: Yes: Alert, Oriented Psychiatric: Yes: Alert, Oriented Labs: CBC, BMP 08/09/17 06:30 08/07/17 09:22 Problem List - Problems (1) Open fracture of tuft of distal phalanx of finger Assessment/Plan: 21yo RHD male with right hand web operations administrator injury A. Right ring finger open tuft fracture with nail plate avulsion and nail bed laceration B. Right small finger ulnar laceration of pulp C. Right middle finger small subungal hematoma D. Right index finger small eponychial hematoma POD#2 s/p repair, Repeat WBC 12->16.4->11.1 , would recommend remaining an additional day to receive IV antibiotics F/u in surgery clinic in 1 week for Dressing change Antibiotic regimen per ID Right Arm elevation encourage ambulation and Incentive spirometry Adequate analgesia Discharge is at the discretion of Primary team and ID Code(s): S62.639B - DISP FX OF DISTAL PHALANX OF UNSP FINGER, INIT FOR OPN FX (2) Nailbed laceration, finger Code(s): S61.319A - LACERATION W/O FB OF UNSP FINGER W DAMAGE TO NAIL, INIT (3) Traumatic avulsion of nail plate of finger Code(s): S61.309A - UNSP OPEN WOUND OF UNSP FINGER W DAMAGE TO NAIL, INIT ENCNTR (4) Injury of right hand Code(s): S69.91XA - UNSP INJURY OF RIGHT WRIST, HAND AND FINGER(S), INIT ENCNTR Qualifiers: Encounter type: initial encounter Qualified Code(s): S69.91XA - Unspecified injury of right wrist, hand and finger(s), initial encounter
[2017-08-09 07:49] LABS: BASO % 0.5 % (0-2.0); EOS % 0.8 % (0-4.5); HEMATOCRIT 38.6 % (35.4-49); HEMOGLOBIN 12.9 GM/dL (11.7-16.9); LYMPH % 29.5 % (8-40); MCH 28.7 pg (25.7-33.7); MCHC 33.4 g/dl (32.0-35.9); MEAN CELL VOLUME 85.9 fl (80-96); MEAN PLT VOLUME 8.4 fl (7.5-11.1); MONO % 7.8 % (3.8-10.2); NEUT % 61.4 % (42.8-82.8); PLATELET COUNT 282 K/MM3 (134-434); RDW 13.6 % (11.9-15.9); WHITE BLOOD COUNT 11.1 K/mm3 (4.0-10.0)
[2017-08-09] MEDS: IBUPROFEN 600 MG TABLET (FP) PO PRN ×3 (07:59→19:53)
[2017-08-09] MEDS: PANTOPRAZOLE SODIUM 40 MG VIAL IVPUSH SCH (09:31)
--- NOTE | 2017-08-09 11:37 | PN ---
Progress Note, Physician History of Present Illness: patient has no complaints no issues wbc is trending down - Current Medication List Current Medications: Active Medications Acetaminophen (Tylenol -) 650 mg PO Q6H PRN PRN Reason: PAIN LEVEL 4 - 6 Clindamycin HCl (Cleocin -) 300 mg PO Q6HPO [facility] Ibuprofen (Motrin -) 600 mg PO Q6H PRN PRN Reason: PAIN LEVEL 4 - 6 Last Admin: 08/09/17 07:59 Dose: 600 mg Morphine Sulfate (Morphine Sulfate) 2 mg IVPUSH Q6H PRN PRN Reason: PAIN LEVEL 6-10 Ondansetron HCl (Zofran Injection) 4 mg IVPB Q6H PRN PRN Reason: NAUSEA Pantoprazole Sodium (Protonix Iv) 40 mg IVPUSH DAILY [facility] Last Admin: 08/09/17 09:31 Dose: 40 mg - Objective Vital Signs: Vital Signs Temperature 98.4 F 08/09/17 09:43 Pulse Rate 67 08/09/17 09:43 Respiratory Rate 18 08/09/17 09:43 Blood Pressure 110/52 08/09/17 09:43 O2 Sat by Pulse Oximetry (%) 98 08/09/17 09:00 Constitutional: Yes: No Distress, Calm Cardiovascular: Yes: Regular Rate and Rhythm Respiratory: Yes: Regular, CTA Bilaterally Gastrointestinal: Yes: Normal Bowel Sounds, Soft Musculoskeletal: Yes: WNL Extremities: Yes: Other Wound/Incision: Yes: Dressing Dry and Intact Neurological: Yes: Alert, Oriented Psychiatric: Yes: Alert, Oriented Labs: CBC, BMP 08/09/17 06:30 08/07/17 09:22 INR, PTT INR 1.06 (0.82-1.09) 08/07/17 09:22 Assessment/Plan Problem List - Problems (1) Open fracture of tuft of distal phalanx of finger Code(s): S62.639B - DISP FX OF DISTAL PHALANX OF UNSP FINGER, INIT FOR OPN FX (2) Nailbed laceration, finger Code(s): S61.319A - LACERATION W/O FB OF UNSP FINGER W DAMAGE TO NAIL, INIT (3) Traumatic avulsion of nail plate of finger Code(s): S61.309A - UNSP OPEN WOUND OF UNSP FINGER W DAMAGE TO NAIL, INIT ENCNTR (4) Injury of right hand Code(s): S69.91XA - UNSP INJURY OF RIGHT WRIST, HAND AND FINGER(S), INIT ENCNTR Qualifiers: Encounter type: initial encounter Qualified Code(s): S69.91XA - Unspecified injury of right wrist, hand and finger(s), initial encounter leukocytosis patients wbc has decreased plan will change to oral clinda monitor wbc if wbc continues to be normal then patient may be able to go home tomorrow
--- NOTE | 2017-08-09 12:27 | OP ---
DATE OF OPERATION: 08/07/2017 PREOPERATIVE DIAGNOSIS: Right hand arc cutter injury. POSTOPERATIVE DIAGNOSIS: Right hand arc cutter injury. PROCEDURE: Right 4th and 5th digit wound exploration with debridement; right ring finger nailbed laceration repair, 1.5 cm; and eponychial fold splinting. ATTENDING SURGEON: Marcello Wasserman MD MORTGAGE BROKER: None. ANESTHESIOLOGIST: ANESTHESIA TYPE: MAC with local. Local consisted of a scalene block applied by Dr. Kelsey. ESTIMATED BLOOD LOSS: 2 mL TOURNIQUET TIME: 24 minutes TOURNIQUET PRESSURE: 250 mmHg INSTRUMENTS FOR DEBRIDEMENT: Tenotomy scissors and Littler scissors. INTRAVENOUS FLUID: 400 mL crystalloid. BRIEF FINDINGS: Comminuted tuft fracture, right ring finger distal phalanx; nail plate avulsion 100% with associated 1.5-cm nailbed laceration for the right ring finger. The right small finger had a 1-cm laceration involving the pulp and cuticle. INDICATION: Patient is a 21-year-old male presenting approximately 2 hours after a arc cutter injury where his right hand was injured while he stuck it into a arc cutter, trying to dislodge ice from the shoot. His hand accidentally encountered the blade. He sustained an injury most significantly of the ring finger where he had a 100% nail plate avulsion. He immediately presented to the emergency room and was counseled regarding the need for surgery. He was started on IV antibiotics, provided with analgesia. At which point, we proceeded then with operative management. He was explained the risks, benefits, and alternatives to surgical procedure proposed, signed informed consent, was taken for the procedure. DESCRIPTION OF PROCEDURE: Patient was brought to the operating room. He was placed in supine position on the operating table with the right arm extended at 90 degrees perpendicular to the body's axis. The right hand was prepped and draped into a standard surgical field with a tourniquet applied. Lower extremities had SCDs applied. Patient was induced with sedation, already had a scalene block in place, placed by Dr. Kelsey preoperatively, which was dense with adequate anesthesia. Once sedated, a formal timeout was completed, identifying the operative site and the operative digits, the 4th and 5th, as well as the sites were marked. We proceeded then first with sterile shave, prep, and drape of the arm into a surgical field, blocking the dorsum of the 4th and 5th digits. We proceeded first with identifying what appeared to be a 100% nail plate avulsion from the ring finger. The nail itself was debrided and removed from its soft tissue connections which were remnant and saved for later re-splinting. It was debrided of some cuticle and detritus and trimmed to allow for installation as a biologic nail plate splint/eponychial fold splint. At any rate, we proceeded with first then with identification of a jagged and irregular 1.5-cm nailbed laceration. We identified it. Detritus was debrided from its border. The cuticle, which was frayed and devitalized, was debrided along with additional segments of nailbed. Debris, which was foreign, was irrigated from the site, which appeared to be dirt. It was not substantial. We then turned our attention to what appeared to be a subungual hematoma of the small finger. It was released with a [place] elevator under the nail. A 1-cm laceration was also identified on the ulnar border involving the pulp, extending into the cuticle. It was not deep to the bone. Once the injuries could be appraised, we then turned our attention to repair. The small finger laceration was irrigated. Debris was removed, a small amount of dirt. At which point, the decision was made to close it. Interrupted nylon provided for a loose closure. Size 4-0 was selected and approximated the skin edges. We then proceeded with expressing the subungual hematoma from the small finger. With the small finger repaired, we proceeded then with a nailbed laceration repair; 5-0 Vicryl in interrupted fashion was used to approximate the jagged edges of the remaining vital tissue of the nailbed. The tuft fracture was palpated. The bone fragments were compressed into a reasonable position. Once the nailbed itself could be adequately approximated, the eponychial fold was identified, and the sterile nail matrix appeared to be somewhat contaminated but was cleared of debris. We proceeded then with splinting the eponychial fold. The nail plate which had been preserved for this purpose was then trimmed to size and inserted under the eponychial fold into the area of the sterile nail matrix and then tacked in 3 positions. At the 12 o'clock position, the nail plate was tacked with 4-0 nylon in interrupted fashion. The 9 and 3 were also in interrupted fashion tacked to allow for adequate positioning of the nail. We then proceeded with cleaning the site. At each site, bacitracin was applied to the laceration repairs and the nail splint. It was wrapped in Xeroform gauze to protect the repairs. We then proceeded with placement of dressings including rolled gauze wrap around each of the digits distally. Passive motion confirmed that adequate position could be achieved in all joints, assuring no dislocation. Web space protection of gauze was then placed, and the patient was then splinted with a volar resting splint with protection for the tip of the ring and small fingers which had the significant injuries. The patient's wrist was placed into position of function. The arm was placed into a sling, and the patient was awoken from sedation, having tolerated the procedure well. The patient was returned to recovery room in stable condition. Counts were correct. MD KHANG Gooden/[id number]
[2017-08-09] MEDS: CLINDAMYCIN HCL 150 MG CAPSULE (FP) PO SCH ×2 (13:27→17:39)
[2017-08-10] MEDS ORDERED: PT OWN MED DRAWER 7, Y5N ONE (06:02)
[2017-08-10] MEDS: CLINDAMYCIN HCL 150 MG CAPSULE (FP) PO SCH ×3 (06:02→11:52)
[2017-08-10 07:41] LABS: HEMATOCRIT 38.5 % (35.4-49); HEMOGLOBIN 12.8 GM/dL (11.7-16.9); MCH 28.8 pg (25.7-33.7); MCHC 33.3 g/dl (32.0-35.9); MEAN CELL VOLUME 86.5 fl (80-96); MEAN PLT VOLUME 8.5 fl (7.5-11.1); PLATELET COUNT 284 K/MM3 (134-434); RBC 4.45 M/mm3 (4.00-5.60); RDW 13.6 % (11.9-15.9); WHITE BLOOD COUNT 10.2 K/mm3 (4.0-10.0)
[2017-08-10] MEDS: PANTOPRAZOLE SODIUM 40 MG VIAL IVPUSH SCH ×2 (10:19→10:40)
--- NOTE | 2017-08-10 11:27 | PN ---
Progress Note, Physician Chief Complaint: right hand display director injury History of Present Illness: 21 yo RHD male with no significant PMH who presents to the emergency department with a right hand injury after his hand was caught in a display director this morning. The patient reports injuries to the 2nd, 3rd, 4th, and 5th right fingers. stable overnight, pain adequately controlled. - Current Medication List Current Medications: Active Medications Acetaminophen (Tylenol -) 650 mg PO Q6H PRN PRN Reason: PAIN LEVEL 4 - 6 Clindamycin HCl (Cleocin -) 300 mg PO Q6HPO [facility] Last Admin: 08/10/17 06:02 Dose: 300 mg Ibuprofen (Motrin -) 600 mg PO Q6H PRN PRN Reason: PAIN LEVEL 4 - 6 Last Admin: 08/09/17 19:53 Dose: 600 mg Morphine Sulfate (Morphine Sulfate) 2 mg IVPUSH Q6H PRN PRN Reason: PAIN LEVEL 6-10 Ondansetron HCl (Zofran Injection) 4 mg IVPB Q6H PRN PRN Reason: NAUSEA Pantoprazole Sodium (Protonix Iv) 40 mg IVPUSH DAILY [facility] Last Admin: 08/10/17 10:40 Dose: Not Given - Objective Vital Signs: Vital Signs Temperature 98.2 F 08/10/17 09:24 Pulse Rate 64 08/10/17 09:24 Respiratory Rate 16 08/10/17 09:24 Blood Pressure 116/49 08/10/17 09:24 O2 Sat by Pulse Oximetry (%) 99 08/09/17 22:00 Vital Signs Period Temp Pulse Resp BP Sys/Mohr Pulse Ox Last 24 Hr 97.4 F-98.2 F 53-64 16-20 102-130/49-72 99 Constitutional: Yes: Well Nourished, No Distress Eyes: Yes: Conjunctiva Clear, EOM Intact HENT: Yes: Atraumatic, Normocephalic Neck: Yes: Supple, Trachea Midline Cardiovascular: Yes: Regular Rate and Rhythm, S1, S2 Respiratory: Yes: Regular, CTA Bilaterally Gastrointestinal: Yes: Normal Bowel Sounds, Soft. No: Tenderness ...Rectal Exam: Yes: Deferred Genitourinary: No: CVA Tenderness - Left, CVA Tenderness - Right Extremities: No: Cool, Cyanosis Wound/Incision: Yes: Clean/Dry, Well Approximated, Dressing Dry and Intact Neurological: Yes: Alert, Oriented Psychiatric: Yes: Alert, Oriented Labs: CBC, BMP 08/10/17 06:00 08/07/17 09:22 INR, PTT INR 1.06 (0.82-1.09) 08/07/17 09:22 Problem List - Problems (1) Open fracture of tuft of distal phalanx of finger Assessment/Plan: 21yo RHD male with right hand display director injury A. Right ring finger open tuft fracture with nail plate avulsion and nail bed laceration B. Right small finger ulnar laceration of pulp C. Right middle finger small subungal hematoma D. Right index finger small eponychial hematoma POD#3 s/p repair, Repeat WBC 12->16.4->11.1->10.2 F/u in surgery clinic in 1 week for Dressing change Antibiotic regimen per ID Right Arm elevation encourage ambulation and Incentive spirometry Adequate analgesia Discharge is at the discretion of Primary team and ID Code(s): S62.639B - DISP FX OF DISTAL PHALANX OF UNSP FINGER, INIT FOR OPN FX (2) Nailbed laceration, finger Code(s): S61.319A - LACERATION W/O FB OF UNSP FINGER W DAMAGE TO NAIL, INIT (3) Traumatic avulsion of nail plate of finger Code(s): S61.309A - UNSP OPEN WOUND OF UNSP FINGER W DAMAGE TO NAIL, INIT ENCNTR (4) Injury of right hand Code(s): S69.91XA - UNSP INJURY OF RIGHT WRIST, HAND AND FINGER(S), INIT ENCNTR Qualifiers: Encounter type: initial encounter Qualified Code(s): S69.91XA - Unspecified injury of right wrist, hand and finger(s), initial encounter
[2017-08-10] MEDS: PANTOPRAZOLE SOD 40 MG SUSPENSION PACKET PO SCH (11:52)
[2017-08-10] MEDS: IBUPROFEN 600 MG TABLET (FP) PO PRN ×2 (12:34→21:03)
--- NOTE | 2017-08-10 15:35 | PN ---
Progress Note, Physician Chief Complaint: Rt hand snoe blower injury History of Present Illness: 21 yo RHD male with no significant PMH who presents to the emergency department with a right hand injury after his hand was caught in a blower installer this morning. The patient reports injuries to the 2nd, 3rd, 4th, and 5th right fingers. stable overnight, pain adequately controlled - Current Medication List Current Medications: Active Medications Acetaminophen (Tylenol -) 650 mg PO Q6H PRN PRN Reason: PAIN LEVEL 4 - 6 Clindamycin HCl (Cleocin -) 300 mg PO Q6HPO [facility] Last Admin: 08/10/17 11:52 Dose: 300 mg Ibuprofen (Motrin -) 600 mg PO Q6H PRN PRN Reason: PAIN LEVEL 4 - 6 Last Admin: 08/10/17 12:34 Dose: 600 mg Morphine Sulfate (Morphine Sulfate) 2 mg IVPUSH Q6H PRN PRN Reason: PAIN LEVEL 6-10 Ondansetron HCl (Zofran Injection) 4 mg IVPB Q6H PRN PRN Reason: NAUSEA Pantoprazole Sodium (Protonix Packets For Oral Suspension -) 40 mg PO DAILY [facility] Last Admin: 08/10/17 11:52 Dose: 40 mg - Objective Vital Signs: Vital Signs Temperature 98.4 F 08/10/17 14:00 Pulse Rate 64 08/10/17 09:24 Respiratory Rate 16 08/10/17 09:24 Blood Pressure 116/49 08/10/17 09:24 O2 Sat by Pulse Oximetry (%) 99 08/10/17 09:00 Constitutional: Yes: Well Nourished, No Distress Eyes: Yes: Conjunctiva Clear, EOM Intact HENT: Yes: Atraumatic, Normocephalic Neck: Yes: Supple, Trachea Midline Cardiovascular: Yes: Regular Rate and Rhythm Respiratory: Yes: Regular, CTA Bilaterally Gastrointestinal: Yes: Normal Bowel Sounds, Soft Extremities: Yes: Other (blower room attendant injury to the 2nd, 3rd, 4th, and 5th right fingers. S/P Surgery) Labs: CBC, BMP 08/10/17 06:00 08/07/17 09:22 INR, PTT INR 1.06 (0.82-1.09) 08/07/17 09:22 Problem List - Problems (1) Open fracture of tuft of distal phalanx of finger Code(s): S62.639B - DISP FX OF DISTAL PHALANX OF UNSP FINGER, INIT FOR OPN FX (2) Nailbed laceration, finger Code(s): S61.319A - LACERATION W/O FB OF UNSP FINGER W DAMAGE TO NAIL, INIT (3) Traumatic avulsion of nail plate of finger Code(s): S61.309A - UNSP OPEN WOUND OF UNSP FINGER W DAMAGE TO NAIL, INIT ENCNTR (4) Injury of right hand Code(s): S69.91XA - UNSP INJURY OF RIGHT WRIST, HAND AND FINGER(S), INIT ENCNTR Qualifiers: Encounter type: initial encounter Qualified Code(s): S69.91XA - Unspecified injury of right wrist, hand and finger(s), initial encounter Assessment/Plan (1) Open fracture of tuft of distal phalanx of finger Assessment/Plan: 21yo RHD male with right hand blower installer injury A. Right ring finger open tuft fracture with nail plate avulsion and nail bed laceration B. Right small finger ulnar laceration of pulp C. Right middle finger small subungal hematoma D. Right index finger small eponychial hematoma POD#3 s/p repair, Repeat WBC 12->16.4->11.1->10.2 (2) Nailbed laceration, finger Code(s): S61.319A - LACERATION W/O FB OF UNSP FINGER W DAMAGE TO NAIL, INIT (3) Traumatic avulsion of nail plate of finger Code(s): S61.309A - UNSP OPEN WOUND OF UNSP FINGER W DAMAGE TO NAIL, INIT ENCNTR (4) Injury of right hand Code(s): S69.91XA - UNSP INJURY OF RIGHT WRIST, HAND AND FINGER(S), INIT ENCNTR
--- NOTE | 2017-08-10 15:50 | PN ---
Progress Note, Physician History of Present Illness: patient stable no complaints had 2 loose bowel moment wbc still not decreased much - Current Medication List Current Medications: Active Medications Acetaminophen (Tylenol -) 650 mg PO Q6H PRN PRN Reason: PAIN LEVEL 4 - 6 Clindamycin HCl (Cleocin -) 300 mg PO Q6HPO [facility] Last Admin: 08/10/17 11:52 Dose: 300 mg Ibuprofen (Motrin -) 600 mg PO Q6H PRN PRN Reason: PAIN LEVEL 4 - 6 Last Admin: 08/10/17 12:34 Dose: 600 mg Morphine Sulfate (Morphine Sulfate) 2 mg IVPUSH Q6H PRN PRN Reason: PAIN LEVEL 6-10 Ondansetron HCl (Zofran Injection) 4 mg IVPB Q6H PRN PRN Reason: NAUSEA Pantoprazole Sodium (Protonix Packets For Oral Suspension -) 40 mg PO DAILY [facility] Last Admin: 08/10/17 11:52 Dose: 40 mg - Objective Vital Signs: Vital Signs Temperature 98.4 F 08/10/17 14:00 Pulse Rate 64 08/10/17 09:24 Respiratory Rate 16 08/10/17 09:24 Blood Pressure 116/49 08/10/17 09:24 O2 Sat by Pulse Oximetry (%) 99 08/10/17 09:00 Constitutional: Yes: No Distress, Calm Cardiovascular: Yes: Regular Rate and Rhythm Respiratory: Yes: Regular, CTA Bilaterally Gastrointestinal: Yes: Normal Bowel Sounds, Soft Musculoskeletal: Yes: WNL Extremities: Yes: Other Wound/Incision: Yes: Dressing Dry and Intact Neurological: Yes: Alert, Oriented Psychiatric: Yes: Alert, Oriented Labs: CBC, BMP 08/10/17 06:00 08/07/17 09:22 INR, PTT INR 1.06 (0.82-1.09) 08/07/17 09:22 Assessment/Plan Problem List - Problems (1) Open fracture of tuft of distal phalanx of finger Code(s): S62.639B - DISP FX OF DISTAL PHALANX OF UNSP FINGER, INIT FOR OPN FX (2) Nailbed laceration, finger Code(s): S61.319A - LACERATION W/O FB OF UNSP FINGER W DAMAGE TO NAIL, INIT (3) Traumatic avulsion of nail plate of finger Code(s): S61.309A - UNSP OPEN WOUND OF UNSP FINGER W DAMAGE TO NAIL, INIT ENCNTR (4) Injury of right hand Code(s): S69.91XA - UNSP INJURY OF RIGHT WRIST, HAND AND FINGER(S), INIT ENCNTR Qualifiers: Encounter type: initial encounter Qualified Code(s): S69.91XA - Unspecified injury of right wrist, hand and finger(s), initial encounter leukocytosis patients wbc has marginally decreased 2 soft bowel movement i am worried why the patients wbc is not coming down will change abx and see what happens plan will change abx to doxy and augmentin will watch the wbc i have discussed in detail with the patient what is going on if the wbc does not come down then will d/w surgery to ahve a look at the wound
[2017-08-10] MEDS: DOXYCYCLINE HYCLATE 100 MG CAPSULE PO SCH (17:16)
[2017-08-10] MEDS: AMOX TR/POT CLAV 875MG/125MG TABLETS (FP) PO SCH (17:16)
[2017-08-11] MEDS: AMOX TR/POT CLAV 875MG/125MG TABLETS (FP) PO SCH ×2 (08:05→17:57)
[2017-08-11] MEDS: DOXYCYCLINE HYCLATE 100 MG CAPSULE PO SCH ×2 (09:40→17:57)
[2017-08-11] MEDS: PANTOPRAZOLE SOD 40 MG SUSPENSION PACKET PO SCH (09:40)
[2017-08-11 09:59] LABS: HEMATOCRIT 39.7 % (35.4-49); HEMOGLOBIN 13.3 GM/dL (11.7-16.9); MCH 28.8 pg (25.7-33.7); MCHC 33.5 g/dl (32.0-35.9); MEAN CELL VOLUME 85.9 fl (80-96); PLATELET COUNT 303 K/MM3 (134-434); RBC 4.63 M/mm3 (4.00-5.60); RDW 13.1 % (11.9-15.9); WHITE BLOOD COUNT 10.1 K/mm3 (4.0-10.0)
--- NOTE | 2017-08-11 10:11 | PN ---
Progress Note, Physician Chief Complaint: right hand laboratory apparatus glass blower injury History of Present Illness: 21 yo RHD male with no significant PMH who presents to the emergency department with a right hand injury after his hand was caught in a laboratory apparatus glass blower this morning. The patient reports injuries to the 2nd, 3rd, 4th, and 5th right fingers. stable overnight, pain adequately controlled. - Current Medication List Current Medications: Active Medications Acetaminophen (Tylenol -) 650 mg PO Q6H PRN PRN Reason: PAIN LEVEL 4 - 6 Amoxicillin/Clavulanate Potassium (Augmentin - 875mg Tablet) 1 tab PO BID@0800, 1730 [facility] Last Admin: 08/11/17 08:05 Dose: 1 tab Doxycycline Hyclate (Vibramycin -) 100 mg PO BID@1000,1800 [facility] Last Admin: 08/11/17 09:40 Dose: 100 mg Ibuprofen (Motrin -) 600 mg PO Q6H PRN PRN Reason: PAIN LEVEL 4 - 6 Last Admin: 08/10/17 21:03 Dose: 600 mg Ondansetron HCl (Zofran Injection) 4 mg IVPB Q6H PRN PRN Reason: NAUSEA Pantoprazole Sodium (Protonix Packets For Oral Suspension -) 40 mg PO DAILY [facility] Last Admin: 08/11/17 09:40 Dose: 40 mg - Objective Vital Signs: Vital Signs Temperature 98 F 08/11/17 09:32 Pulse Rate 68 08/11/17 09:32 Respiratory Rate 18 08/11/17 09:32 Blood Pressure 130/71 08/11/17 09:32 O2 Sat by Pulse Oximetry (%) 96 08/11/17 09:00 Vital Signs Period Temp Pulse Resp BP Sys/Mohr Pulse Ox Last 24 Hr 98 F-98.4 F 60-68 -18 100-130/60-71 96-99 Constitutional: Yes: No Distress, Calm, Obese Eyes: Yes: Conjunctiva Clear, EOM Intact HENT: Yes: Atraumatic, Normocephalic Neck: Yes: Supple, Trachea Midline Cardiovascular: Yes: Regular Rate and Rhythm, S1, S2 Respiratory: Yes: Regular, CTA Bilaterally Gastrointestinal: Yes: Normal Bowel Sounds, Soft, Abdomen, Obese. No: Tenderness ...Rectal Exam: Yes: Deferred Genitourinary: No: CVA Tenderness - Left, CVA Tenderness - Right Wound/Incision: Yes: Clean/Dry, Dressing Dry and Intact Neurological: Yes: Alert, Oriented Psychiatric: Yes: Alert, Oriented Labs: CBC, BMP 08/11/17 09:30 INR, PTT INR 1.06 (0.82-1.09) 08/07/17 09:22 Problem List - Problems (1) Open fracture of tuft of distal phalanx of finger Assessment/Plan: 21yo RHD male with right hand laboratory apparatus glass blower injury A. Right ring finger open tuft fracture with nail plate avulsion and nail bed laceration B. Right small finger ulnar laceration of pulp C. Right middle finger small subungal hematoma D. Right index finger small eponychial hematoma POD#4 s/p repair, Repeat WBC 12->16.4->11.1->10.2->10.1 Will remove dressing in AM 3/13 if here and start PT Antibiotic regimen per ID Right Arm elevation Discharge is at the discretion of Primary team and ID Code(s): S62.639B - DISP FX OF DISTAL PHALANX OF UNSP FINGER, INIT FOR OPN FX (2) Nailbed laceration, finger Code(s): S61.319A - LACERATION W/O FB OF UNSP FINGER W DAMAGE TO NAIL, INIT (3) Traumatic avulsion of nail plate of finger Code(s): S61.309A - UNSP OPEN WOUND OF UNSP FINGER W DAMAGE TO NAIL, INIT ENCNTR (4) Injury of right hand Code(s): S69.91XA - UNSP INJURY OF RIGHT WRIST, HAND AND FINGER(S), INIT ENCNTR Qualifiers: Encounter type: initial encounter Qualified Code(s): S69.91XA - Unspecified injury of right wrist, hand and finger(s), initial encounter
[2017-08-11 10:36] LABS: ALBUMIN 3.6 g/dl (3.4-5.0); ALK PHOS 77 U/L (45-117); ANION GAP 9 (8-16); BILIRUBIN,TOTAL 0.4 mg/dL (0.2-1.0); BLOOD UREA NITROGEN 17 mg/dL (7-18); CALCIUM 8.7 mg/dL (8.5-10.1); CHLORIDE 104 mmol/L (98-107); CO2 24 mmol/L (21-32); CREATININE 0.9 mg/dL (0.7-1.3); GLUCOSE,RANDOM 101 mg/dL (74-106); SGOT/AST 9 U/L (15-37); SGPT/ALT 15 U/L (12-78); SODIUM 137 mmol/L (136-145)
--- NOTE | 2017-08-11 13:19 | PN ---
Progress Note, Physician History of Present Illness: patient stable doing well no issues wbc still on the higher side - Current Medication List Current Medications: Active Medications Acetaminophen (Tylenol -) 650 mg PO Q6H PRN PRN Reason: PAIN LEVEL 4 - 6 Amoxicillin/Clavulanate Potassium (Augmentin - 875mg Tablet) 1 tab PO BID@0800, 1730 [facility] Last Admin: 08/11/17 08:05 Dose: 1 tab Doxycycline Hyclate (Vibramycin -) 100 mg PO BID@1000,1800 [facility] Last Admin: 08/11/17 09:40 Dose: 100 mg Ibuprofen (Motrin -) 600 mg PO Q6H PRN PRN Reason: PAIN LEVEL 4 - 6 Last Admin: 08/10/17 21:03 Dose: 600 mg Ondansetron HCl (Zofran Injection) 4 mg IVPB Q6H PRN PRN Reason: NAUSEA Pantoprazole Sodium (Protonix Packets For Oral Suspension -) 40 mg PO DAILY [facility] Last Admin: 08/11/17 09:40 Dose: 40 mg - Objective Vital Signs: Vital Signs Temperature 98 F 08/11/17 09:32 Pulse Rate 68 08/11/17 09:32 Respiratory Rate 18 08/11/17 09:32 Blood Pressure 130/71 08/11/17 09:32 O2 Sat by Pulse Oximetry (%) 96 08/11/17 09:00 Constitutional: Yes: No Distress, Calm Cardiovascular: Yes: Regular Rate and Rhythm Respiratory: Yes: Regular, CTA Bilaterally Gastrointestinal: Yes: Normal Bowel Sounds, Soft Musculoskeletal: Yes: WNL Extremities: Yes: Other Wound/Incision: Yes: Dressing Dry and Intact Neurological: Yes: Alert, Oriented Psychiatric: Yes: Alert, Oriented Labs: CBC, BMP 08/11/17 09:30 08/11/17 09:30 INR, PTT INR 1.06 (0.82-1.09) 08/07/17 09:22 Assessment/Plan Problem List - Problems (1) Open fracture of tuft of distal phalanx of finger Code(s): S62.639B - DISP FX OF DISTAL PHALANX OF UNSP FINGER, INIT FOR OPN FX (2) Nailbed laceration, finger Code(s): S61.319A - LACERATION W/O FB OF UNSP FINGER W DAMAGE TO NAIL, INIT (3) Traumatic avulsion of nail plate of finger Code(s): S61.309A - UNSP OPEN WOUND OF UNSP FINGER W DAMAGE TO NAIL, INIT ENCNTR (4) Injury of right hand Code(s): S69.91XA - UNSP INJURY OF RIGHT WRIST, HAND AND FINGER(S), INIT ENCNTR Qualifiers: Encounter type: initial encounter Qualified Code(s): S69.91XA - Unspecified injury of right wrist, hand and finger(s), initial encounter leukocytosis wbc continues to be on the higher side i have spoke to surgery plan is to open the dressing and have a look at the wound plan continue current abx await for surgery to open the wound if the wound is infected will start iv rest continue current mgmt i have discussed the plan in detail with the patient
--- NOTE | 2017-08-11 18:59 | PN ---
Progress Note, Physician Chief Complaint: Rt hand snoe blower injury Pt still having elated WBC and Loose stools History of Present Illness: 21 yo RHD male with no significant PMH who presents to the emergency department with a right hand injury after his hand was caught in a ecd this morning. The patient reports injuries to the 2nd, 3rd, 4th, and 5th right fingers. Pt seen by surgery and ID Pt will have dressing change If WBC still high will have IV anti biotics - Current Medication List Current Medications: Active Medications Acetaminophen (Tylenol -) 650 mg PO Q6H PRN PRN Reason: PAIN LEVEL 4 - 6 Amoxicillin/Clavulanate Potassium (Augmentin - 875mg Tablet) 1 tab PO BID@0800, 1730 [facility] Last Admin: 08/11/17 17:57 Dose: 1 tab Doxycycline Hyclate (Vibramycin -) 100 mg PO BID@1000,1800 [facility] Last Admin: 08/11/17 17:57 Dose: 100 mg Ibuprofen (Motrin -) 600 mg PO Q6H PRN PRN Reason: PAIN LEVEL 4 - 6 Last Admin: 08/10/17 21:03 Dose: 600 mg Ondansetron HCl (Zofran Injection) 4 mg IVPB Q6H PRN PRN Reason: NAUSEA Pantoprazole Sodium (Protonix Packets For Oral Suspension -) 40 mg PO DAILY [facility] Last Admin: 08/11/17 09:40 Dose: 40 mg - Objective Vital Signs: Vital Signs Temperature 98 F 08/11/17 09:32 Pulse Rate 68 08/11/17 09:32 Respiratory Rate 18 08/11/17 09:32 Blood Pressure 130/71 08/11/17 09:32 O2 Sat by Pulse Oximetry (%) 96 08/11/17 09:00 Constitutional: Yes: Well Nourished, No Distress Eyes: Yes: Conjunctiva Clear, EOM Intact HENT: Yes: Atraumatic, Normocephalic Neck: Yes: Supple, Trachea Midline Cardiovascular: Yes: Regular Rate and Rhythm Respiratory: Yes: Regular, CTA Bilaterally Gastrointestinal: Yes: Normal Bowel Sounds, Soft Edema: No Neurological: Yes: Alert, Oriented, Cran Nerves II-XII Intact Labs: CBC, BMP 08/11/17 09:30 08/11/17 09:30 INR, PTT INR 1.06 (0.82-1.09) 08/07/17 09:22 Problem List - Problems (1) Open fracture of tuft of distal phalanx of finger Code(s): S62.639B - DISP FX OF DISTAL PHALANX OF UNSP FINGER, INIT FOR OPN FX (2) Nailbed laceration, finger Code(s): S61.319A - LACERATION W/O FB OF UNSP FINGER W DAMAGE TO NAIL, INIT (3) Traumatic avulsion of nail plate of finger Code(s): S61.309A - UNSP OPEN WOUND OF UNSP FINGER W DAMAGE TO NAIL, INIT ENCNTR (4) Injury of right hand Code(s): S69.91XA - UNSP INJURY OF RIGHT WRIST, HAND AND FINGER(S), INIT ENCNTR Qualifiers: Encounter type: initial encounter Qualified Code(s): S69.91XA - Unspecified injury of right wrist, hand and finger(s), initial encounter Assessment/Plan (1) Open fracture of tuft of distal phalanx of finger Assessment/Plan: 21yo RHD male with right hand ecd injury A. Right ring finger open tuft fracture with nail plate avulsion and nail bed laceration B. Right small finger ulnar laceration of pulp C. Right middle finger small subungal hematoma D. Right index finger small eponychial hematoma POD#4 s/p repair, Repeat WBC 12->16.4->11.1->10.2>10.1 (2) Nailbed laceration, finger Code(s): S61.319A - LACERATION W/O FB OF UNSP FINGER W DAMAGE TO NAIL, INIT (3) Traumatic avulsion of nail plate of finger Code(s): S61.309A - UNSP OPEN WOUND OF UNSP FINGER W DAMAGE TO NAIL, INIT ENCNTR (4) Injury of right hand Code(s): S69.91XA - UNSP INJURY OF RIGHT WRIST, HAND AND FINGER(S), INIT ENCNTR Discussed with ID Pt is having loose stool/ Stool for C.diff/ Discussed with aptient and Nurse to give and collect specimen Pt WBC still not trending down Need to open the dressing/ Pt need IV antibiotics discussed with patient and family at bed side
[2017-08-12 07:24] LABS: BASO % 0.6 % (0-2.0); EOS % 1.8 % (0-4.5); HEMATOCRIT 40.8 % (35.4-49); HEMOGLOBIN 13.7 GM/dL (11.7-16.9); LYMPH % 15.9 % (8-40); MCH 28.4 pg (25.7-33.7); MCHC 33.5 g/dl (32.0-35.9); MEAN CELL VOLUME 84.7 fl (80-96); MONO % 7.2 % (3.8-10.2); NEUT % 74.5 % (42.8-82.8); PLATELET COUNT 307 K/MM3 (134-434); RBC 4.82 M/mm3 (4.00-5.60); RDW 13.4 % (11.9-15.9); WHITE BLOOD COUNT 12.1 K/mm3 (4.0-10.0)
[2017-08-12 08:05] LABS: ANION GAP 10 (8-16); BLOOD UREA NITROGEN 18 mg/dL (7-18); CALCIUM 9.4 mg/dL (8.5-10.1); CHLORIDE 100 mmol/L (98-107); CO2 26 mmol/L (21-32); CREATININE 0.9 mg/dL (0.7-1.3); GLUCOSE,RANDOM 88 mg/dL (74-106); POTASSIUM 4.2 mmol/L (3.5-5.1); SODIUM 136 mmol/L (136-145)
[2017-08-12] MEDS: AMOX TR/POT CLAV 875MG/125MG TABLETS (FP) PO SCH ×2 (08:45→17:07)
[2017-08-12] MEDS: DOXYCYCLINE HYCLATE 100 MG CAPSULE PO SCH ×2 (09:35→17:07)
[2017-08-12] MEDS: PANTOPRAZOLE SOD 40 MG SUSPENSION PACKET PO SCH (09:35)
--- NOTE | 2017-08-12 09:51 | PN ---
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 The patient reports injuries to the 2nd, 3rd, 4th, and 5th right fingers. stable overnight, pain adequately controlled. - Current Medication List Current Medications: Active Medications Acetaminophen (Tylenol -) 650 mg PO Q6H PRN PRN Reason: PAIN LEVEL 4 - 6 Amoxicillin/Clavulanate Potassium (Augmentin - 875mg Tablet) 1 tab PO BID@0800, 1730 [facility] Last Admin: 08/12/17 08:45 Dose: 1 tab Doxycycline Hyclate (Vibramycin -) 100 mg PO BID@1000,1800 [facility] Last Admin: 08/12/17 09:35 Dose: 100 mg Ibuprofen (Motrin -) 600 mg PO Q6H PRN PRN Reason: PAIN LEVEL 4 - 6 Last Admin: 08/10/17 21:03 Dose: 600 mg Ondansetron HCl (Zofran Injection) 4 mg IVPB Q6H PRN PRN Reason: NAUSEA Pantoprazole Sodium (Protonix Packets For Oral Suspension -) 40 mg PO DAILY [facility] Last Admin: 08/12/17 09:35 Dose: 40 mg - Objective Vital Signs: Vital Signs Temperature 97.5 F L 08/12/17 05:32 Pulse Rate 61 08/12/17 05:32 Respiratory Rate 20 08/12/17 05:32 Blood Pressure 113/66 08/12/17 05:32 O2 Sat by Pulse Oximetry (%) 98 08/11/17 21:00 Vital Signs Period Temp Pulse Resp BP Sys/Mohr Pulse Ox Last 24 Hr 97.5 F-98.7 F 55-61 20-20 113-115/62-66 98 Constitutional: Yes: No Distress, Calm, Obese Eyes: Yes: Conjunctiva Clear, EOM Intact HENT: Yes: Atraumatic, Normocephalic Neck: Yes: Supple, Trachea Midline Cardiovascular: Yes: Regular Rate and Rhythm, S1, S2. No: Murmur Respiratory: Yes: Regular, CTA Bilaterally Gastrointestinal: Yes: Normal Bowel Sounds, Soft. No: Tenderness Genitourinary: No: CVA Tenderness - Left, CVA Tenderness - Right Extremities: No: Cool, Cyanosis Wound/Incision: Yes: Clean/Dry, Sutures Intact, Dressing Removed, Other (ring finger splint splint placed) Neurological: Yes: Alert, Oriented Psychiatric: Yes: Alert, Oriented Labs: CBC, BMP 08/12/17 06:58 08/12/17 06:58 INR, PTT INR 1.06 (0.82-1.09) 08/07/17 09:22 Problem List - Problems (1) Open fracture of tuft of distal phalanx of finger Assessment/Plan: 21yo RHD male with right hand franchise development manager injury A. Right ring finger open tuft fracture with nail plate avulsion and nail bed laceration B. Right small finger ulnar laceration of pulp C. Right middle finger small subungal hematoma D. Right index finger small eponychial hematoma POD#5 s/p repair, Repeat WBC 12->16.4->11.1->10.2->10.1->12.1 removed splint and dressing, ring finger distal tip protection start right hand PT Antibiotic regimen per ID Right Arm elevation Discharge is at the discretion of Primary team and ID Code(s): S62.639B - DISP FX OF DISTAL PHALANX OF UNSP FINGER, INIT FOR OPN FX (2) Nailbed laceration, finger Code(s): S61.319A - LACERATION W/O FB OF UNSP FINGER W DAMAGE TO NAIL, INIT (3) Traumatic avulsion of nail plate of finger Code(s): S61.309A - UNSP OPEN WOUND OF UNSP FINGER W DAMAGE TO NAIL, INIT ENCNTR (4) Injury of right hand Code(s): S69.91XA - UNSP INJURY OF RIGHT WRIST, HAND AND FINGER(S), INIT ENCNTR Qualifiers: Encounter type: initial encounter Qualified Code(s): S69.91XA - Unspecified injury of right wrist, hand and finger(s), initial encounter
[2017-08-12] MEDS ORDERED: BACITRACIN 15 GM TUBE TOPICAL OINTMENT TP ONE (10:15)
[2017-08-12] MEDS ORDERED: KETOROLAC TROMETHAMINE 30 MG/1 ML VIAL IVPUSH ONE (10:20)
--- NOTE | 2017-08-12 13:40 | PN ---
Progress Note, Physician History of Present Illness: patient clinically doing well but the wbc has gone up inspite of 2 oral abx d/w surgery and decided to look at the wound wound opened and looked at looks good though the finger swelling still present patient does complain of pain - Current Medication List Current Medications: Active Medications Acetaminophen (Tylenol -) 650 mg PO Q6H PRN PRN Reason: PAIN LEVEL 4 - 6 Amoxicillin/Clavulanate Potassium (Augmentin - 875mg Tablet) 1 tab PO BID@0800, 1730 [facility] Last Admin: 08/12/17 08:45 Dose: 1 tab Doxycycline Hyclate (Vibramycin -) 100 mg PO BID@1000,1800 [facility] Last Admin: 08/12/17 09:35 Dose: 100 mg Vancomycin HCl 1,250 mg/ (Dextrose) 250 mls @ 250 mls/hr IVPB DAILY [facility] PRN Reason: Protocol Ibuprofen (Motrin -) 600 mg PO Q6H PRN PRN Reason: PAIN LEVEL 4 - 6 Last Admin: 08/10/17 21:03 Dose: 600 mg Ondansetron HCl (Zofran Injection) 4 mg IVPB Q6H PRN PRN Reason: NAUSEA Pantoprazole Sodium (Protonix Packets For Oral Suspension -) 40 mg PO DAILY [facility] Last Admin: 08/12/17 09:35 Dose: 40 mg - Objective Vital Signs: Vital Signs Temperature 97.5 F L 08/12/17 05:32 Pulse Rate 61 08/12/17 05:32 Respiratory Rate 20 08/12/17 05:32 Blood Pressure 113/66 08/12/17 05:32 O2 Sat by Pulse Oximetry (%) 98 08/11/17 21:00 Constitutional: Yes: Calm, Mild Distress, Other (pain) Cardiovascular: Yes: Regular Rate and Rhythm Respiratory: Yes: Regular, CTA Bilaterally Gastrointestinal: Yes: Normal Bowel Sounds, Soft Musculoskeletal: Yes: WNL Extremities: Yes: Other Integumentary: Yes: Other Wound/Incision: Yes: Clean/Dry, Dressing Removed, Other (swelling of the finger) Neurological: Yes: Alert, Oriented Psychiatric: Yes: Alert, Oriented Labs: CBC, BMP 08/12/17 06:58 08/12/17 06:58 INR, PTT INR 1.06 (0.82-1.09) 08/07/17 09:22 Assessment/Plan Problem List - Problems (1) Open fracture of tuft of distal phalanx of finger Code(s): S62.639B - DISP FX OF DISTAL PHALANX OF UNSP FINGER, INIT FOR OPN FX (2) Nailbed laceration, finger Code(s): S61.319A - LACERATION W/O FB OF UNSP FINGER W DAMAGE TO NAIL, INIT (3) Traumatic avulsion of nail plate of finger Code(s): S61.309A - UNSP OPEN WOUND OF UNSP FINGER W DAMAGE TO NAIL, INIT ENCNTR (4) Injury of right hand Code(s): S69.91XA - UNSP INJURY OF RIGHT WRIST, HAND AND FINGER(S), INIT ENCNTR Qualifiers: Encounter type: initial encounter Qualified Code(s): S69.91XA - Unspecified injury of right wrist, hand and finger(s), initial encounter leukocytosis after looking at the wound and wbc i have discussed this with the patient and his mother i am going to start him on iv abx and watch the wbc plan starting iv vanco harper top oral abx close watch on wbc rest as per primary team
[2017-08-12] MEDS ORDERED: PT OWN MED DRAWER 7, Y5N ONE (17:28)
[2017-08-12] MEDS: VANCOMYCIN 1,250 MG in DEXTROSE 5%-WATER - 250 ML IVPB SCH (18:39)
--- NOTE | 2017-08-12 21:15 | PN ---
Progress Note, Physician Chief Complaint: Rt hand snoe blower injury Pt having Elevated WBC On vanco now History of Present Illness: 21 yo RHD male with no significant PMH who presents to the emergency department with a right hand injury after his hand was caught in a associate faculty this morning. The patient reports injuries to the 2nd, 3rd, 4th, and 5th right fingers. Pt seen by surgery and ID Pt will have dressing change If WBC still high No on vanco - Current Medication List Current Medications: Active Medications Acetaminophen (Tylenol -) 650 mg PO Q6H PRN PRN Reason: PAIN LEVEL 4 - 6 Amoxicillin/Clavulanate Potassium (Augmentin - 875mg Tablet) 1 tab PO BID@0800, 1730 [facility] Last Admin: 08/12/17 17:07 Dose: 1 tab Doxycycline Hyclate (Vibramycin -) 100 mg PO BID@1000,1800 [facility] Last Admin: 08/12/17 17:07 Dose: 100 mg Vancomycin HCl 1,250 mg/ (Dextrose) 250 mls @ 125 mls/hr IVPB DAILY@1500 [facility] PRN Reason: Protocol Last Admin: 08/12/17 18:39 Dose: 125 mls/hr Ibuprofen (Motrin -) 600 mg PO Q6H PRN PRN Reason: PAIN LEVEL 4 - 6 Last Admin: 08/10/17 21:03 Dose: 600 mg Ondansetron HCl (Zofran Injection) 4 mg IVPB Q6H PRN PRN Reason: NAUSEA Pantoprazole Sodium (Protonix Packets For Oral Suspension -) 40 mg PO DAILY [facility] Last Admin: 08/12/17 09:35 Dose: 40 mg - Objective Vital Signs: Vital Signs Temperature 98.5 F 08/12/17 14:44 Pulse Rate 64 08/12/17 14:44 Respiratory Rate 20 08/12/17 09:00 Blood Pressure 127/59 08/12/17 14:44 O2 Sat by Pulse Oximetry (%) 98 08/12/17 09:00 Constitutional: Yes: Well Nourished, No Distress Eyes: Yes: Conjunctiva Clear, EOM Intact HENT: Yes: Atraumatic, Normocephalic Neck: Yes: Supple, Trachea Midline Cardiovascular: Yes: Regular Rate and Rhythm Respiratory: Yes: Regular, CTA Bilaterally Gastrointestinal: Yes: Normal Bowel Sounds, Soft Edema: No Labs: CBC, BMP 08/12/17 06:58 03/13/18 06:58 INR, PTT INR 1.06 (0.82-1.09) 08/07/17 09:22 Problem List - Problems (1) Open fracture of tuft of distal phalanx of finger Code(s): S62.639B - DISP FX OF DISTAL PHALANX OF UNSP FINGER, INIT FOR OPN FX (2) Nailbed laceration, finger Code(s): S61.319A - LACERATION W/O FB OF UNSP FINGER W DAMAGE TO NAIL, INIT (3) Traumatic avulsion of nail plate of finger Code(s): S61.309A - UNSP OPEN WOUND OF UNSP FINGER W DAMAGE TO NAIL, INIT ENCNTR (4) Injury of right hand Code(s): S69.91XA - UNSP INJURY OF RIGHT WRIST, HAND AND FINGER(S), INIT ENCNTR Qualifiers: Encounter type: initial encounter Qualified Code(s): S69.91XA - Unspecified injury of right wrist, hand and finger(s), initial encounter Assessment/Plan (1) Open fracture of tuft of distal phalanx of finger Assessment/Plan: 21yo RHD male with right hand associate faculty injury A. Right ring finger open tuft fracture with nail plate avulsion and nail bed laceration B. Right small finger ulnar laceration of pulp C. Right middle finger small subungal hematoma D. Right index finger small eponychial hematoma POD#5 s/p repair, Repeat WBC 12->16.4->11.1->10.2>10.1>12.1 (2) Nailbed laceration, finger Code(s): S61.319A - LACERATION W/O FB OF UNSP FINGER W DAMAGE TO NAIL, INIT (3) Traumatic avulsion of nail plate of finger Code(s): S61.309A - UNSP OPEN WOUND OF UNSP FINGER W DAMAGE TO NAIL, INIT ENCNTR (4) Injury of right hand Code(s): S69.91XA - UNSP INJURY OF RIGHT WRIST, HAND AND FINGER(S), INIT ENCNTR Pt is having WBC 12.1 and Pt on vanco now 5th PO day discussed with patient and family at bed side
[2017-08-13 07:07] LABS: BASO % 0.5 % (0-2.0); EOS % 1.8 % (0-4.5); HEMATOCRIT 42.6 % (35.4-49); HEMOGLOBIN 14.4 GM/dL (11.7-16.9); LYMPH % 15.8 % (8-40); MCH 29.1 pg (25.7-33.7); MCHC 33.9 g/dl (32.0-35.9); MEAN CELL VOLUME 85.8 fl (80-96); MEAN PLT VOLUME 8.2 fl (7.5-11.1); MONO % 8.1 % (3.8-10.2); NEUT % 73.8 % (42.8-82.8); PLATELET COUNT 322 K/MM3 (134-434); RBC 4.97 M/mm3 (4.00-5.60); RDW 13.3 % (11.9-15.9); WHITE BLOOD COUNT 12.6 K/mm3 (4.0-10.0)
[2017-08-13 07:58] LABS: ANION GAP 9 (8-16); BLOOD UREA NITROGEN 19 mg/dL (7-18); CALCIUM 8.8 mg/dL (8.5-10.1); CHLORIDE 104 mmol/L (98-107); CO2 25 mmol/L (21-32); GLUCOSE,RANDOM 86 mg/dL (74-106); POTASSIUM 4.5 mmol/L (3.5-5.1); SODIUM 138 mmol/L (136-145)
[2017-08-13] MEDS ORDERED: PT OWN MED DRAWER 7, Y5N ONE ×2 (10:41→17:00)
--- NOTE | 2017-08-13 10:45 | PN ---
Progress Note, Physician Chief Complaint: right hand evp business development injury History of Present Illness: 21 yo RHD male with no significant PMH who presents to the emergency department with a right hand injury after his hand was caught in a evp business development this morning. The patient reports injuries to the 2nd, 3rd, 4th, and 5th right fingers. stable overnight, pain adequately controlled. - Current Medication List Current Medications: Active Medications Acetaminophen (Tylenol -) 650 mg PO Q6H PRN PRN Reason: PAIN LEVEL 4 - 6 Vancomycin HCl 1,250 mg/ (Dextrose) 250 mls @ 125 mls/hr IVPB DAILY@1500 YAMILKA PRN Reason: Protocol Last Admin: 08/12/17 18:39 Dose: 125 mls/hr Ibuprofen (Motrin -) 600 mg PO Q6H PRN PRN Reason: PAIN LEVEL 4 - 6 Last Admin: 08/10/17 21:03 Dose: 600 mg Ondansetron HCl (Zofran Injection) 4 mg IVPB Q6H PRN PRN Reason: NAUSEA Pantoprazole Sodium (Protonix -) 40 mg PO DAILY YAMILKA - Objective Vital Signs: Vital Signs Temperature 98.4 F 08/13/17 05:39 Pulse Rate 62 08/13/17 05:39 Respiratory Rate 20 08/13/17 05:39 Blood Pressure 100/51 08/13/17 05:39 O2 Sat by Pulse Oximetry (%) 98 08/12/17 21:00 Vital Signs Period Temp Pulse Resp BP Sys/Mohr Pulse Ox Last 24 Hr 98.3 F-99.0 F 62-90 18-20 100-131/51-59 98-98 Constitutional: Yes: Well Nourished, No Distress, Calm Eyes: Yes: Conjunctiva Clear, EOM Intact HENT: Yes: Atraumatic, Normocephalic Neck: Yes: Supple, Trachea Midline Cardiovascular: Yes: Regular Rate and Rhythm, S1, S2 Respiratory: Yes: Regular, CTA Bilaterally Gastrointestinal: Yes: Normal Bowel Sounds, Soft. No: Tenderness ...Rectal Exam: Yes: Deferred Genitourinary: No: CVA Tenderness - Left, CVA Tenderness - Right Integumentary: No: Jaundice, Rash Wound/Incision: Yes: Clean/Dry, Well Approximated, Sutures Intact, Draining. No : Reddened, Bleeding Neurological: Yes: Alert, Oriented Psychiatric: Yes: Alert, Oriented Labs: CBC, BMP 08/13/17 06:35 08/13/17 06:35 INR, PTT INR 1.06 (0.82-1.09) 08/07/17 09:22 Problem List - Problems (1) Open fracture of tuft of distal phalanx of finger Assessment/Plan: 21yo RHD male with right hand evp business development injury A. Right ring finger open tuft fracture with nail plate avulsion and nail bed laceration B. Right small finger ulnar laceration of pulp C. Right middle finger small subungal hematoma D. Right index finger small eponychial hematoma POD#6 s/p repair, Repeat WBC 12->16.4->11.1->10.2->10.1->12.1->12.6 removed splint and dressing, ring finger distal tip protection start right hand PT Antibiotic regimen per ID Right Arm elevation Discharge is at the discretion of Primary team and ID Code(s): S62.639B - DISP FX OF DISTAL PHALANX OF UNSP FINGER, INIT FOR OPN FX (2) Nailbed laceration, finger Code(s): S61.319A - LACERATION W/O FB OF UNSP FINGER W DAMAGE TO NAIL, INIT (3) Traumatic avulsion of nail plate of finger Code(s): S61.309A - UNSP OPEN WOUND OF UNSP FINGER W DAMAGE TO NAIL, INIT ENCNTR (4) Injury of right hand Code(s): S69.91XA - UNSP INJURY OF RIGHT WRIST, HAND AND FINGER(S), INIT ENCNTR Qualifiers: Encounter type: initial encounter Qualified Code(s): S69.91XA - Unspecified injury of right wrist, hand and finger(s), initial encounter
[2017-08-13] MEDS: PANTOPRAZOLE 40 MG TABLET (FP) PO SCH (10:48)
--- NOTE | 2017-08-13 14:39 | PN ---
Progress Note, Physician History of Present Illness: patient post op has no complaints dressing on the wound splint present - Current Medication List Current Medications: Active Medications Acetaminophen (Tylenol -) 650 mg PO Q6H PRN PRN Reason: PAIN LEVEL 4 - 6 Vancomycin HCl 1,250 mg/ (Dextrose) 250 mls @ 125 mls/hr IVPB DAILY@1500 YAMILKA PRN Reason: Protocol Last Admin: 08/12/17 18:39 Dose: 125 mls/hr Piperacillin Sod/Tazobactam (Sod 3.375 gm/ Dextrose) 50 mls @ 100 mls/hr IVPB Q8H-IV YAMILKA PRN Reason: Protocol Ibuprofen (Motrin -) 600 mg PO Q6H PRN PRN Reason: PAIN LEVEL 4 - 6 Last Admin: 08/10/17 21:03 Dose: 600 mg Ondansetron HCl (Zofran Injection) 4 mg IVPB Q6H PRN PRN Reason: NAUSEA Pantoprazole Sodium (Protonix -) 40 mg PO DAILY [facility] Last Admin: 08/13/17 10:48 Dose: 40 mg - Objective Vital Signs: Vital Signs Temperature 98.3 F 08/13/17 14:25 Pulse Rate 87 08/13/17 14:25 Respiratory Rate 20 08/13/17 05:39 Blood Pressure 120/59 08/13/17 14:25 O2 Sat by Pulse Oximetry (%) 98 08/12/17 21:00 Constitutional: Yes: No Distress, Calm Neck: Yes: Supple, Trachea Midline Cardiovascular: Yes: Regular Rate and Rhythm Respiratory: Yes: Regular, CTA Bilaterally Gastrointestinal: Yes: Normal Bowel Sounds, Soft Musculoskeletal: Yes: WNL Extremities: Yes: Other Wound/Incision: Yes: Dressing Dry and Intact, Other (splint in place) Neurological: Yes: Oriented Psychiatric: Yes: Alert, Oriented Labs: CBC, BMP 08/13/17 06:35 08/13/17 06:35 INR, PTT INR 1.06 (0.82-1.09) 08/07/17 09:22 Assessment/Plan Problem List - Problems (1) Open fracture of tuft of distal phalanx of finger Code(s): S62.639B - DISP FX OF DISTAL PHALANX OF UNSP FINGER, INIT FOR OPN FX (2) Nailbed laceration, finger Code(s): S61.319A - LACERATION W/O FB OF UNSP FINGER W DAMAGE TO NAIL, INIT (3) Traumatic avulsion of nail plate of finger Code(s): S61.309A - UNSP OPEN WOUND OF UNSP FINGER W DAMAGE TO NAIL, INIT ENCNTR (4) Injury of right hand Code(s): S69.91XA - UNSP INJURY OF RIGHT WRIST, HAND AND FINGER(S), INIT ENCNTR Qualifiers: Encounter type: initial encounter Qualified Code(s): S69.91XA - Unspecified injury of right wrist, hand and finger(s), initial encounter leukocytosis inspite of iv vanco the wbc has still increased i had a long discussion with the patient in front of his mother i told them i am very worried about deeper infection plan i have added zosyn to vanco stopped all oral meds will d/w surgery the further plan will see what wbc is tomorrow looking at the complete picture i have told him he is going to need iv abx for couple of weeks
[2017-08-13] MEDS: VANCOMYCIN 1,250 MG in DEXTROSE 5%-WATER - 250 ML IVPB SCH (14:51)
[2017-08-13] MEDS: PIPERACILLIN/TAZOB 3.375 GM 3.375 GM in DEXTROSE 5%-WATER - 50 ML IVPB SCH ×2 (18:07→18:08)
--- NOTE | 2017-08-13 18:07 | PN ---
Progress Note, Physician Chief Complaint: Rt hand snoe blower injury Discussed with Surgery and ID today Pt WBC is still high History of Present Illness: 21 yo RHD male with no significant PMH who presents to the emergency department with a right hand injury after his hand was caught in a shellfish processing machine tender this morning. The patient reports injuries to the 2nd, 3rd, 4th, and 5th right fingers. Pt seen by surgery and ID Pt seen by Surgery today and ID Pt wound as per surgery Looks OK - Current Medication List Current Medications: Active Medications Acetaminophen (Tylenol -) 650 mg PO Q6H PRN PRN Reason: PAIN LEVEL 4 - 6 Vancomycin HCl 1,250 mg/ (Dextrose) 250 mls @ 125 mls/hr IVPB DAILY@1500 YAMILKA PRN Reason: Protocol Last Admin: 08/13/17 14:51 Dose: 125 mls/hr Piperacillin Sod/Tazobactam (Sod 3.375 gm/ Dextrose) 50 mls @ 100 mls/hr IVPB Q8H-IV YAMILKA PRN Reason: Protocol Ibuprofen (Motrin -) 600 mg PO Q6H PRN PRN Reason: PAIN LEVEL 4 - 6 Last Admin: 08/10/17 21:03 Dose: 600 mg Ondansetron HCl (Zofran Injection) 4 mg IVPB Q6H PRN PRN Reason: NAUSEA Pantoprazole Sodium (Protonix -) 40 mg PO DAILY [facility] Last Admin: 08/13/17 10:48 Dose: 40 mg - Objective Vital Signs: Vital Signs Temperature 98.3 F 08/13/17 14:25 Pulse Rate 87 08/13/17 14:25 Respiratory Rate 18 08/13/17 14:25 Blood Pressure 120/59 08/13/17 14:25 O2 Sat by Pulse Oximetry (%) 98 08/13/17 09:00 Constitutional: Yes: Well Nourished Eyes: Yes: Conjunctiva Clear, EOM Intact HENT: Yes: Atraumatic, Normocephalic Neck: Yes: Supple, Trachea Midline Cardiovascular: Yes: Regular Rate and Rhythm, S1, S2 Respiratory: Yes: Regular, CTA Bilaterally Gastrointestinal: Yes: Normal Bowel Sounds, Soft Edema: No Labs: CBC, BMP 08/13/17 06:35 08/13/17 06:35 INR, PTT INR 1.06 (0.82-1.09) 08/07/17 09:22 Problem List - Problems (1) Open fracture of tuft of distal phalanx of finger Code(s): S62.639B - DISP FX OF DISTAL PHALANX OF UNSP FINGER, INIT FOR OPN FX (2) Nailbed laceration, finger Code(s): S61.319A - LACERATION W/O FB OF UNSP FINGER W DAMAGE TO NAIL, INIT (3) Traumatic avulsion of nail plate of finger Code(s): S61.309A - UNSP OPEN WOUND OF UNSP FINGER W DAMAGE TO NAIL, INIT ENCNTR (4) Injury of right hand Code(s): S69.91XA - UNSP INJURY OF RIGHT WRIST, HAND AND FINGER(S), INIT ENCNTR Qualifiers: Encounter type: initial encounter Qualified Code(s): S69.91XA - Unspecified injury of right wrist, hand and finger(s), initial encounter Assessment/Plan (1) Open fracture of tuft of distal phalanx of finger Assessment/Plan: 21yo RHD male with right hand shellfish processing machine tender injury A. Right ring finger open tuft fracture with nail plate avulsion and nail bed laceration B. Right small finger ulnar laceration of pulp C. Right middle finger small subungal hematoma D. Right index finger small eponychial hematoma POD#6 s/p repair, Repeat WBC 12->16.4->11.1->10.2>10.1>12.1>12.6 (2) Nailbed laceration, finger Code(s): S61.319A - LACERATION W/O FB OF UNSP FINGER W DAMAGE TO NAIL, INIT (3) Traumatic avulsion of nail plate of finger Code(s): S61.309A - UNSP OPEN WOUND OF UNSP FINGER W DAMAGE TO NAIL, INIT ENCNTR (4) Injury of right hand Code(s): S69.91XA - UNSP INJURY OF RIGHT WRIST, HAND AND FINGER(S), INIT ENCNTR Pt is having WBC 12.1 and Pt on vanco and Zosyn now 6th PO day discussed with ID , Surgery patient and family at bed side,
--- NOTE | 2017-08-13 18:07 | DS ---
Physical Examination Vital Signs: Vital Signs Temperature 98.3 F 08/13/17 14:25 Pulse Rate 87 08/13/17 14:25 Respiratory Rate 18 08/13/17 14:25 Blood Pressure 120/59 08/13/17 14:25 O2 Sat by Pulse Oximetry (%) 98 08/13/17 09:00 Labs: CBC, BMP 08/13/17 06:35 08/13/17 06:35 <Donte Mcdonald - Last Filed: 08/13/17 18:07> Vital Signs: Vital Signs Temperature 98.5 F 08/14/17 09:00 Pulse Rate 80 08/14/17 09:00 Respiratory Rate 18 08/14/17 09:00 Blood Pressure 108/78 08/14/17 09:00 O2 Sat by Pulse Oximetry (%) 98 08/13/17 21:00 Labs: CBC, BMP 08/14/17 10:25 <Marcello Wasserman - Last Filed: 08/14/17 10:47> Discharge Summary Reason For Visit: INJURY OF RIGHT HAND Current Active Problems Injury of right hand (Acute) Nailbed laceration, finger (Acute) Open fracture of tuft of distal phalanx of finger (Acute) Traumatic avulsion of nail plate of finger (Acute) - Home Medications Comprehensive Discharge Medication List: Ambulatory Orders NK [No Known Home Medication] 08/07/17 <Donte Mcdonald - Last Filed: 08/13/17 18:07> Current Active Problems Injury of right hand (Acute) Nailbed laceration, finger (Acute) Open fracture of tuft of distal phalanx of finger (Acute) Traumatic avulsion of nail plate of finger (Acute) - Home Medications Comprehensive Discharge Medication List: Ambulatory Orders NK [No Known Home Medication] 08/07/17 <Marcello Wasserman - Last Filed: 08/14/17 10:47> Condition: Improved - Instructions Diet, Activity, Other Instructions: Postoperative instructions: You had a Right 4th and 5th digit wound exploration , debrideemnt and closure on 08/07/[address] Marcello Wasserman of [facility]. Activity: Resume your usual activities gradually, but no heavy exertion or lifting more than 10-15 pounds for 4-6 weeks. Daily wound care by [facility]NS. You may shower daily with your dressing and splint covered. Sutures will need be removed in 10-14 days. Eat lightly at first, but advance to your usual diet as tolerated. We will provide a protective splint for you right hand for subway travel. Please continue with out patient PT at [facility]. Wound care by VNS: Wound Measurement: Right hand ring and small finger, 1-1.5cm skin closures, nylon sutures intact Dressing Instructions: daily change, 1" xeroform, 2" cling gauze, tape on ring and small fingers, finger tip splint ring finger only Pain: For pain, you may use and alternate Tylenol (acetaminophen) and/or ibuprofen every 6 hours each as needed; this means that you can take one OR the other at 3-hour intervals. If you are prescribed a Tylenol/narcotic combination for severe pain, use it instead of plain Tylenol as needed and switch back when your pain starts decreasing. Do not take more than 4000mg of acetaminophen in a day. Take medications as prescribed or indicated on the labeling. Follow-up: Call Dr. Wasserman' office at [phone] to make your postop appointment (Friday, 08/20 at ___). Clinic is held in the [facility] on the first floor of [facility]. Call the office if you have: * increasing pain not responsive to pain medication * fever of 101F or higher * unusual or increasing bleeding or drainage from wounds * increasing redness or swelling at wound sites Also, see your primary medical doctor within 1-2 weeks. Disposition: HOME
[2017-08-14] MEDS ORDERED: PT OWN MED DRAWER 7, Y5N ONE (01:11)
[2017-08-14] MEDS: PIPERACILLIN/TAZOB 3.375 GM 3.375 GM in DEXTROSE 5%-WATER - 50 ML IVPB SCH ×2 (01:16→09:37)
[2017-08-14] MEDS: PANTOPRAZOLE 40 MG TABLET (FP) PO SCH (09:37)
--- NOTE | 2017-08-14 10:19 | PN ---
Progress Note, Physician Chief Complaint: right hand vegetable grader injury History of Present Illness: 21 yo RHD male with no significant PMH who presents to the emergency department with a right hand injury after his hand was caught in a vegetable grader this morning. The patient reports injuries to the 2nd, 3rd, 4th, and 5th right fingers. stable overnight, pain adequately controlled. - Current Medication List Current Medications: Active Medications Acetaminophen (Tylenol -) 650 mg PO Q6H PRN PRN Reason: PAIN LEVEL 4 - 6 Vancomycin HCl 1,250 mg/ (Dextrose) 250 mls @ 125 mls/hr IVPB DAILY@1500 YAMILKA PRN Reason: Protocol Last Admin: 08/13/17 14:51 Dose: 125 mls/hr Piperacillin Sod/Tazobactam (Sod 3.375 gm/ Dextrose) 50 mls @ 100 mls/hr IVPB Q8H-IV YAMILKA PRN Reason: Protocol Last Admin: 08/14/17 09:37 Dose: 100 mls/hr Ibuprofen (Motrin -) 600 mg PO Q6H PRN PRN Reason: PAIN LEVEL 4 - 6 Last Admin: 08/10/17 21:03 Dose: 600 mg Ondansetron HCl (Zofran Injection) 4 mg IVPB Q6H PRN PRN Reason: NAUSEA Pantoprazole Sodium (Protonix -) 40 mg PO DAILY Y[facility]ILKA Last Admin: 08/14/17 09:37 Dose: 40 mg - Objective Vital Signs: Vital Signs Temperature 98.5 F 08/14/17 05:33 Pulse Rate 64 08/14/17 05:33 Respiratory Rate 20 08/14/17 05:33 Blood Pressure 113/66 08/14/17 05:33 O2 Sat by Pulse Oximetry (%) 98 08/13/17 21:00 Constitutional: Yes: Well Nourished, No Distress, Calm Eyes: Yes: Conjunctiva Clear, EOM Intact HENT: Yes: Atraumatic, Normocephalic Neck: Yes: Supple, Trachea Midline Cardiovascular: Yes: Regular Rate and Rhythm, S1, S2 Respiratory: Yes: Regular, CTA Bilaterally Gastrointestinal: Yes: Normal Bowel Sounds, Soft. No: Tenderness Extremities: No: Cool, Cyanosis Wound/Incision: Yes: Clean/Dry, Well Approximated, [place] Intact. No: Draining , Reddened, Bleeding Neurological: Yes: Alert, Oriented Psychiatric: Yes: Alert, Oriented Labs: CBC, BMP repeat ordered, pending Problem List - Problems (1) Open fracture of tuft of distal phalanx of finger Assessment/Plan: 21yo RHD male with right hand vegetable grader injury A. Right ring finger open tuft fracture with nail plate avulsion and nail bed laceration B. Right small finger ulnar laceration of pulp C. Right middle finger small subungal hematoma D. Right index finger small eponychial hematoma POD#7 s/p repair, Repeat WBC 12->16.4->11.1->10.2->10.1->12.1->12.6, repeat labs ordered. His leukocytosis persists but wound are clean without clinical signs concerning osteomyelitis. I feel he can be safely discharged on oral antibiotics with scheduled routine followup, but discharge is at the discretion of PMD and ID. 1. Continue daily wound care with VNS right hand: Wound Measurement: ring and small fingers 1-1.5cm skin closures, nylon sutures intact Dressing Instructions: 1" xeroform, 2" cling gauze, tape on ring and small fingers, finger tip splint ring finger only 2. Continue physical therapy for right hand - Active and Passive ROM, director financial planning strengthening and Place and hold all free joints. please provide a home exercise program. - I submitted my orders to out patient PT at [facility] 3. Antibiotic regimen per ID 4. Protective splint ordered, hand based removable ulnar gutter splint will arrive by mail today and will be provided to the patient for travel as discussed with the patent [place] Code(s): S62.639B - DISP FX OF DISTAL PHALANX OF UNSP FINGER, INIT FOR OPN FX (2) Nailbed laceration, finger Code(s): S61.319A - LACERATION W/O FB OF UNSP FINGER W DAMAGE TO NAIL, INIT (3) Traumatic avulsion of nail plate of finger Code(s): S61.309A - UNSP OPEN WOUND OF UNSP FINGER W DAMAGE TO NAIL, INIT ENCNTR (4) Injury of right hand Code(s): S69.91XA - UNSP INJURY OF RIGHT WRIST, HAND AND FINGER(S), INIT ENCNTR Qualifiers: Encounter type: initial encounter Qualified Code(s): S69.91XA - Unspecified injury of right wrist, hand and finger(s), initial encounter
[2017-08-14 10:39] LABS: BASO % 0.9 % (0-2.0); EOS % 1.1 % (0-4.5); HEMATOCRIT 43.1 % (35.4-49); HEMOGLOBIN 14.4 GM/dL (11.7-16.9); LYMPH % 15.2 % (8-40); MCH 28.8 pg (25.7-33.7); MCHC 33.4 g/dl (32.0-35.9); MEAN CELL VOLUME 86.4 fl (80-96); MEAN PLT VOLUME 7.7 fl (7.5-11.1); MONO % 8.4 % (3.8-10.2); NEUT % 74.4 % (42.8-82.8); PLATELET COUNT 319 K/MM3 (134-434); RBC 4.98 M/mm3 (4.00-5.60); RDW 13.6 % (11.9-15.9); WHITE BLOOD COUNT 10.2 K/mm3 (4.0-10.0)
[2017-08-14 11:08] LABS: ANION GAP 8 (8-16); BLOOD UREA NITROGEN 15 mg/dL (7-18); CALCIUM 8.9 mg/dL (8.5-10.1); CHLORIDE 106 mmol/L (98-107); CO2 25 mmol/L (21-32); CREATININE 0.9 mg/dL (0.7-1.3); GLUCOSE,RANDOM 86 mg/dL (74-106); POTASSIUM 4.2 mmol/L (3.5-5.1); SODIUM 139 mmol/L (136-145)
--- NOTE | 2017-08-14 11:34 | PN ---
Progress Note, Physician History of Present Illness: patient has no complaints this morning says he is doing well - Current Medication List Current Medications: Active Medications Acetaminophen (Tylenol -) 650 mg PO Q6H PRN PRN Reason: PAIN LEVEL 4 - 6 Vancomycin HCl 1,250 mg/ (Dextrose) 250 mls @ 125 mls/hr IVPB DAILY@1500 YAMILKA PRN Reason: Protocol Last Admin: 08/13/17 14:51 Dose: 125 mls/hr Piperacillin Sod/Tazobactam (Sod 3.375 gm/ Dextrose) 50 mls @ 100 mls/hr IVPB Q8H-IV YAMILKA PRN Reason: Protocol Last Admin: 08/14/17 09:37 Dose: 100 mls/hr Ibuprofen (Motrin -) 600 mg PO Q6H PRN PRN Reason: PAIN LEVEL 4 - 6 Last Admin: 08/10/17 21:03 Dose: 600 mg Ondansetron HCl (Zofran Injection) 4 mg IVPB Q6H PRN PRN Reason: NAUSEA Pantoprazole Sodium (Protonix -) 40 mg PO DAILY [facility] Last Admin: 08/14/17 09:37 Dose: 40 mg - Objective Vital Signs: Vital Signs Temperature 98.5 F 08/14/17 09:00 Pulse Rate 80 08/14/17 09:00 Respiratory Rate 18 08/14/17 09:00 Blood Pressure 108/78 08/14/17 09:00 O2 Sat by Pulse Oximetry (%) 98 08/13/17 21:00 Constitutional: Yes: No Distress, Calm Cardiovascular: Yes: Regular Rate and Rhythm Gastrointestinal: Yes: Normal Bowel Sounds, Soft Extremities: Yes: Other (dressing and splint present on the finger) Integumentary: Yes: Other Wound/Incision: Yes: Dressing Dry and Intact, Other (splint present) Neurological: Yes: Alert, Oriented Psychiatric: Yes: Alert, Oriented Labs: CBC, BMP 08/14/17 10:25 08/14/17 10:25 INR, PTT INR 1.06 (0.82-1.09) 08/07/17 09:22 Assessment/Plan Problem List - Problems (1) Open fracture of tuft of distal phalanx of finger Code(s): S62.639B - DISP FX OF DISTAL PHALANX OF UNSP FINGER, INIT FOR OPN FX (2) Nailbed laceration, finger Code(s): S61.319A - LACERATION W/O FB OF UNSP FINGER W DAMAGE TO NAIL, INIT (3) Traumatic avulsion of nail plate of finger Code(s): S61.309A - UNSP OPEN WOUND OF UNSP FINGER W DAMAGE TO NAIL, INIT ENCNTR (4) Injury of right hand Code(s): S69.91XA - UNSP INJURY OF RIGHT WRIST, HAND AND FINGER(S), INIT ENCNTR Qualifiers: Encounter type: initial encounter Qualified Code(s): S69.91XA - Unspecified injury of right wrist, hand and finger(s), initial encounter leukocytosis improved i have sat down with the patient again and has explained to the patient that i think he should take iv abx for couple of weeks as his wbc had gone high and then started coming down after dual abx it seems he has discussed this with surgeon and he thinks he does not have any infection and does not want any iv abx i had described to him the consequences of that in front of his mother and he understood those issues very well inspite of my enplaning he has opted not take iv abx and wants oral for a few days It seems the surgical team and the primary team also has explained him that plan in view of patients refusal of iv abx he is being send home on oral bactrim and augmentin he has been told to follow up and also told to follow up his wbc he is also going to follow up with the surgeon for further management
[2017-08-14] MEDS: VANCOMYCIN 1,250 MG in DEXTROSE 5%-WATER - 250 ML IVPB SCH (14:26)
--- NOTE | 2017-08-14 14:56 | DS ---
Physical Examination Vital Signs: Vital Signs Temperature 98.5 F 08/14/17 09:00 Pulse Rate 80 08/14/17 09:00 Respiratory Rate 18 08/14/17 09:00 Blood Pressure 108/78 08/14/17 09:00 O2 Sat by Pulse Oximetry (%) 98 08/14/17 09:00 Constitutional: Yes: Well Nourished, No Distress Eyes: Yes: Conjunctiva Clear, EOM Intact HENT: Yes: Atraumatic, Normocephalic Neck: Yes: Supple, Trachea Midline Cardiovascular: Yes: Regular Rate and Rhythm Respiratory: Yes: Regular, CTA Bilaterally Gastrointestinal: Yes: Normal Bowel Sounds, Soft Labs: CBC, BMP 08/14/17 10:25 08/14/17 10:25 Discharge Summary Reason For Visit: INJURY OF RIGHT HAND Current Active Problems Injury of right hand (Acute) Nailbed laceration, finger (Acute) Open fracture of tuft of distal phalanx of finger (Acute) Traumatic avulsion of nail plate of finger (Acute) Procedures: Principal: 21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 A. Right ring finger open tuft fracture with nail plate avulsion and nail bed laceration. B. Right small finger ulnar laceration of pulp. C. Right middle finger small subungal hematoma. D. Right index finger small eponychial hematoma. POD#7 s/p repair, Repeat WBC 12->16.4->11.1->10.2->10.1->12.1->12.6, repeat labs ordered. His leukocytosis persists but wound are clean without clinical signs concerning osteomyelitis. I feel he can be safely discharged on oral antibiotics with scheduled routine followup, but discharge is at the discretion of PMD and ID. 1. Continue daily wound care with VNS right hand: Wound Measurement: ring and small fingers 1-1.5cm skin closures, nylon sutures intact. Dressing Instructions: 1" xeroform, 2" cling gauze, tape on ring and small fingers, finger tip splint ring finger only. 2. Continue physical therapy for right hand - Active and Passive ROM, container filler strengthening and Place and hold all free joints. please provide a home exercise program. - I submitted my orders to out patient PT at [facility]. 3. Antibiotic regimen per ID. 4. Protective splint ordered, hand based removable ulnar gutter splint will arrive by mail today and will be provided to the patient for travel [place]. [place] Course: PT was Rx with IV antibiotics with ID and Suregery on Board Pt wanted to go home Pt will have visiting nurse services for Hand dressing Pt will FU with ID and Surgery in one week Condition: Improved - Instructions Diet, Activity, Other Instructions: Postoperative instructions: You had a Right 4th and 5th digit wound exploration , debridement and closure on 08/07/[address] Marcello Wasserman of [facility]. Activity: Resume your usual activities gradually, but no heavy exertion or lifting more than 10-15 pounds for 4-6 weeks. Daily wound care by VNS. You may shower daily with your dressing and splint covered. Sutures will need be removed in 10-14 days. Eat lightly at first, but advance to your usual diet as tolerated. We will provide a protective splint for you right hand for subway travel. Please continue with out patient PT at [facility]. Wound care by VNS: Wound Measurement: Right hand ring and small finger, 1-1.5cm skin closures, nylon sutures intact Dressing Instructions: daily to Q.O.D. change, 1" xeroform, 2" cling gauze, tape on ring and small fingers, finger tip splint ring finger only Pain: For pain, you may use and alternate Tylenol (acetaminophen) and/or ibuprofen every 6 hours each as needed; this means that you can take one OR the other at 3-hour intervals. If you are prescribed a Tylenol/narcotic combination for severe pain, use it instead of plain Tylenol as needed and switch back when your pain starts decreasing. Do not take more than 4000mg of acetaminophen in a day. Take medications as prescribed or indicated on the labeling. Follow-up: Call Dr. Wasserman' office at [phone] to make your postop appointment (Sunday 08/20 12:45pm, FridaySeptember 03, FridayOctober 01). Clinic is held in the [facility] on the first floor of [facility]. Call the office if you have: * increasing pain not responsive to pain medication * fever of 101F or higher * unusual or increasing bleeding or drainage from wounds * increasing redness or swelling at wound sites Also, see your primary medical doctor within 1-2 weeks. Disposition: HOME - Home Medications Comprehensive Discharge Medication List: Ambulatory Orders NK [No Known Home Medication] 08/07/17 1) Bactrim DS PO BID for 7days 2) Augmentin 825 PO BID 7days 3) Bacid one PO BID 7days Prescription sent to pharmacy Pt to FU with ID and Surgery in one week Any change in wound inform Surgeon/ID and PMD To Fu with PMD in one week
[2017-08-14 15:24] VITALS: BP 124/58; PULSE 72; TEMP 97.7
== END 2017-08-14 17:41 | disposition home or self-care (01) | DRG 316 ==
LOC: JER 07:11 → JERBED 09:47 → J6S 10:53
PROVIDERS: ADMIT Internal Medicine; ATTEND Internal Medicine
PROC: 0XQV0ZZ Repair Right Little Finger, Open Approach (ICD-10-PCS; 2017-08-07)
PROC: 0JBJ0ZZ Excision of Right Hand Subcutaneous Tissue and Fascia, Open Approach (ICD-10-PCS; 2017-08-07)
PROC: 0XQS0ZZ Repair Right Ring Finger, Open Approach (ICD-10-PCS; principal; 2017-08-07 14:00)
DX: S62.634A Displaced fracture of distal phalanx of right ring finger, initial encounter for closed fracture (principal); S61.314A Laceration without foreign body of right ring finger with damage to nail, initial encounter; S61.216A Laceration without foreign body of right little finger without damage to nail, initial encounter; D72.829 Elevated white blood cell count, unspecified; X58.XXXA Exposure to other specified factors, initial encounter; Y93.9 Activity, unspecified; Y92.89 Other specified places as the place of occurrence of the external cause; Y99.9 Unspecified external cause status
CPT/HCPCS: 36415; 73130-TC-RT-FY; 73140-TC-RT-FY; 76000-TC-FY; 80048; 80053; 85025; 85027; 85610; 85730; 86850; 86900; 86901; 90715; 93005; 93010; 94010; 94760; 97161-GP; 99285-25; J7030